=== PATIENT | female | born 2000 | race American Indian/Alaskan Native ===

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

== ENCOUNTER 2019-01-18 19:56 | Emergency (ER) | payer SELFPAY ==
[2019-01-18 20:09] VITALS: BP 126/87
--- NOTE | 2019-01-18 20:10 | Event Note ---
ED Screening Note ED Screening Note: pt states she has a bump to the left buttcheck that began yesterday states she had pus drainage today no fever no PMHx no allergies to meds LNMP: december 22 non smoker non drinker no drug use This initial assessment/diagnostic orders/clinical plan/treatment(s) is/are subject to change based on patients health status, clinical progression and re- assessment by fellow clinical providers in the ED. Further treatment and workup at subsequent clinical providers discretion. Patient/guardian urged not to elope from the ED as their condition may be serious if not clinically assessed and managed.
--- NOTE | 2019-01-18 23:39 | Emergency Department Report ---
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 Patient also c/o acute right plantar foot and heel pain that radiates to the right ankle for over 2 months. Patient denies fever, chills, nausea, vomiting, diarrhea, dizziness, traumatic injury, numbness and tingling of lower extremities bilaterally or dizziness and fall. MD Complaint: Painful left gluteus rash; right plantar foot pain -: Sudden, days(s) (2) Location: back (buttocks), lower extremity (right foot and ankle) Radiation: non-radiation Severity scale (0 -10): 8 Quality: aching, sharp, constant Consistency: constant Improves with: none Worsens with: movement Associated Symptoms: denies other symptoms. denies: confusion, chest pain, cough, diaphoresis, fever/chills, headaches, loss of appetite, malaise, nausea/vomiting, rash, shortness of breath, syncope Treatments Prior to Arrival: none - Related Data Previous Rx's Medication Instructions Recorded Last Taken Type Ibuprofen [Motrin] 600 mg PO Q8H PRN #20 tablet 01/18/19 Unknown Rx Sulfamethoxazole/Trimethoprim 1 each PO BID #20 tablet 01/18/19 Unknown Rx [Bactrim DS TAB] predniSONE [Deltasone] 40 mg PO QDAY #10 tab 01/18/19 Unknown Rx Allergies Allergy/AdvReac Type Severity Reaction Status Date / Time No Known Allergies Allergy Unverified 10/17/17 13:12 ED Review of Systems ROS: Stated complaint: R ANKLE PAIN/BUMP ON L THIGH Other details as noted in HPI Comment: All other systems reviewed and negative Constitutional: denies: chills, fever Eyes: denies: eye pain, eye discharge, vision change ENT: denies: ear pain, throat pain Respiratory: denies: cough, shortness of breath, wheezing Cardiovascular: denies: chest pain, palpitations Endocrine: no symptoms reported Gastrointestinal: denies: abdominal pain, nausea, diarrhea Genitourinary: denies: urgency, dysuria, discharge Musculoskeletal: arthralgia (right plantar foor and ankle). denies: back pain, joint swelling Skin: rash (maculopapular erythematous nonfluctuant rash on left gluteus), change in color (erythematous rash). denies: lesions Neurological: denies: headache, weakness, paresthesias Psychiatric: denies: anxiety, depression Hematological/Lymphatic: denies: easy bleeding, easy bruising ED Past Medical Hx - Past Medical History Previous Medical History?: No - Surgical History Past Surgical History?: No - Social History Smoking Status: Never Smoker Substance Use Type: None - Medications Home Medications: Home Medications Medication Instructions Recorded Confirmed Last Taken Type Ibuprofen [Motrin] 600 mg PO Q8H PRN #20 tablet 01/18/19 Unknown Rx Sulfamethoxazole/Trimethoprim 1 each PO BID #20 tablet 01/18/19 Unknown Rx [Bactrim DS TAB] predniSONE [Deltasone] 40 mg PO QDAY #10 tab 01/18/19 Unknown Rx ED Physical Exam - General Limitations: No Limitations General appearance: alert, in no apparent distress - Head Head exam: Present: atraumatic, normocephalic, normal inspection - Eye Eye exam: Present: normal appearance, PERRL, EOMI - ENT ENT exam: Present: normal exam, normal orophraynx, mucous membranes moist, TM's normal bilaterally, normal external ear exam - Neck Neck exam: Present: normal inspection, full ROM. Absent: tenderness - Respiratory Respiratory exam: Present: normal lung sounds bilaterally. Absent: respiratory distress, wheezes, rhonchi, stridor, chest wall tenderness, decreased breath sounds, prolonged expiratory - Cardiovascular Cardiovascular Exam: Present: regular rate, normal rhythm. Absent: systolic murmur, diastolic murmur, rubs, gallop - GI/Abdominal GI/Abdominal exam: Present: soft, normal bowel sounds. Absent: tenderness, hyperactive bowel sounds, hypoactive bowel sounds, organomegaly - Rectal Rectal exam: Present: deferred - Extremities Exam Extremities exam: Present: normal inspection, full ROM, tenderness (Palpable tenderness of plantar right foot and ankle), normal capillary refill. Absent: pedal edema, joint swelling - Back Exam Back exam: Present: normal inspection, full ROM. Absent: tenderness, CVA tenderness (L), muscle spasm - Neurological Exam Neurological exam: Present: alert, oriented X3, CN II-XII intact, normal gait, reflexes normal - Psychiatric Psychiatric exam: Present: normal affect, normal mood - Skin Skin exam: Present: warm, dry, intact, normal color, rash (erythematous swollen tender mildly erythematous nonfluctuant maculopapular rash on left gluteus) ED Course Vital Signs 01/18/19 01/18/19 20:03 20:09 Temperature 97.6 F 97.6 F Pulse Rate 109 H 108 H Respiratory 18 16 Rate Blood Pressure 126/87 Blood Pressure 126/87 [Left] O2 Sat by Pulse 100 100 Oximetry - Reevaluation(s) Reevaluation #1: 01/18/19 23:42 Patient is alert and oriented 3 and is not in any distress, anxious and tachycardic. Physical exam reveals nonfluctuant erythematous maculopapular rash on the left gluteus. The patient was discharged home on antibiotics and pain medications and advised to follow-up with her primary care physician in 7-10 days for reevaluation. Patient advised to return to the ED immediately if symptoms get worse. ED Medical Decision Making - Medical Decision Making Patient is alert and oriented 3 and is not in any distress, anxious and tachycardic. Physical exam reveals nonfluctuant erythematous maculopapular rash on the left gluteus. The patient was discharged home on antibiotics and pain medications and advised to follow-up with her primary care physician in 7-10 days for reevaluation. The tachycardia resolved to 100 bpm prior to discharge. Patient advised to return to the ED immediately if symptoms get worse. 01/18/19 23:43 - Differential Diagnosis cellulitis of buttocks; plantar fasciitis of right foot Critical care attestation.: If time is entered above; I have spent that time in minutes in the direct care of this critically ill patient, excluding procedure time. ED Disposition Clinical Impression: Plantar fasciitis of right foot, Cellulitis and abscess of buttock Muscle strain of right ankle Qualifiers: Encounter type: initial encounter Qualified Code(s): S96.911A - Strain of unspecified muscle and tendon at ankle and foot level, right foot, initial encounter Disposition: - TO HOME OR SELFCARE Is pt being admited?: No Does the pt Need Aspirin: No Condition: Stable Instructions: Muscle Strain (ED), Cellulitis (ED), Plantar Fasciitis (ED) Additional Instructions: Take medication with food, drink plenty of fluids and follow-up with your primary care physician in 7-10 days for reevaluation. Return to the ED immediately if symptoms get worse. Prescriptions: Sulfamethoxazole/Trimethoprim [Bactrim DS TAB] 1 each PO BID #20 tablet predniSONE [Deltasone] 40 mg PO QDAY #10 tab Ibuprofen [Motrin] 600 mg PO Q8H PRN #20 tablet PRN Reason: Pain Referrals: ZAKIA VANEGAS MD [Primary Care Provider] - 3-5 Days Time of Disposition: 23:45 Print Language: INDONESIAN
== END 2019-01-19 00:06 | disposition home or self-care (01) ==
LOC: ED 19:56
DX: S96.911A Strain of unspecified muscle and tendon at ankle and foot level, right foot, initial encounter (principal); M72.2 Plantar fascial fibromatosis; L02.31 Cutaneous abscess of buttock; W18.39XA Other fall on same level, initial encounter; Y93.89 Activity, other specified; Y92.89 Other specified places as the place of occurrence of the external cause; Y99.8 Other external cause status
CPT/HCPCS: 99282

== ENCOUNTER 2019-09-16 12:27 | Emergency (ER) | payer SELFPAY ==
[2019-09-16 12:43] VITALS: BP 116/81
--- NOTE | 2019-09-16 14:18 | Emergency Department Report ---
ED General Adult HPI - General Chief complaint: Back Pain/Injury Stated complaint: LT ARM PAIN,BACK PAIN Source: patient Mode of arrival: Ambulatory Limitations: No Limitations - History of Present Illness Initial comments: Repetitive lifting at work. Didn't think could work today. No other injury or complaint except should slightly sore too. no back pain. -: Gradual, hour(s) Quality: aching Consistency: intermittent Improves with: none Worsens with: none Associated Symptoms: denies other symptoms - Related Data Previous Rx's Medication Instructions Recorded Last Taken Type Ibuprofen [Motrin] 600 mg PO Q8H PRN #20 tablet 01/18/19 Unknown Rx Sulfamethoxazole/Trimethoprim 1 each PO BID #20 tablet 01/18/19 Unknown Rx [Bactrim DS TAB] predniSONE [Deltasone] 40 mg PO QDAY #10 tab 01/18/19 Unknown Rx Allergies Allergy/AdvReac Type Severity Reaction Status Date / Time No Known Allergies Allergy Unverified 10/17/17 13:12 ED Review of Systems ROS: Stated complaint: LT ARM PAIN,BACK PAIN Other details as noted in HPI Comment: All other systems reviewed and negative ED Past Medical Hx - Past Medical History Previous Medical History?: No - Surgical History Past Surgical History?: No - Social History Smoking Status: Never Smoker Substance Use Type: None - Medications Home Medications: Home Medications Medication Instructions Recorded Confirmed Last Taken Type Ibuprofen [Motrin] 600 mg PO Q8H PRN #20 tablet 01/18/19 Unknown Rx Sulfamethoxazole/Trimethoprim 1 each PO BID #20 tablet 01/18/19 Unknown Rx [Bactrim DS TAB] predniSONE [Deltasone] 40 mg PO QDAY #10 tab 01/18/19 Unknown Rx ED Physical Exam - General Limitations: No Limitations General appearance: alert, in no apparent distress - Head Head exam: Present: atraumatic - ENT ENT exam: Present: mucous membranes dry - Neck Neck exam: Present: normal inspection. Absent: tenderness, meningismus - Extremities Exam Extremities exam: Present: normal inspection, normal capillary refill. Absent: full ROM, tenderness - Neurological Exam Neurological exam: Present: CN II-XII intact. Absent: motor sensory deficit - Psychiatric Psychiatric exam: Present: normal affect, normal mood - Skin Skin exam: Present: warm, dry, intact, normal color. Absent: rash ED Course Vital Signs 09/16/19 12:42 Temperature 97.9 F Pulse Rate 108 H Respiratory 16 Rate Blood Pressure 116/81 O2 Sat by Pulse 97 Oximetry Critical care attestation.: If time is entered above; I have spent that time in minutes in the direct care of this critically ill patient, excluding procedure time. ED Disposition Clinical Impression: Sprain of wrist, left Qualifiers: Encounter type: initial encounter Qualified Code(s): S63.502A - Unspecified sprain of left wrist, initial encounter Disposition: TO HOME OR SELFCARE Is pt being admited?: No Does the pt Need Aspirin: No Condition: Stable Instructions: Wrist Sprain (ED) Additional Instructions: Orthopedist or W/C PRN. Advil OTC. Forms: Work/School Excuse Out Patient, Work/School Release Form(ED) Time of Disposition: 14:18
== END 2019-09-16 14:15 | disposition home or self-care (01) ==
LOC: ED 12:27
DX: S63.502A Unspecified sprain of left wrist, initial encounter (principal); X58.XXXA Exposure to other specified factors, initial encounter; Y93.89 Activity, other specified; Y92.89 Other specified places as the place of occurrence of the external cause; Y99.8 Other external cause status
CPT/HCPCS: 99282

== ENCOUNTER 2019-10-02 19:19 | Emergency (ER) | payer SELFPAY ==
[2019-10-02 20:00] VITALS: BP 117/80
--- NOTE | 2019-10-02 20:22 | Emergency Department Report ---
{null, ED Upper Extremity Inj HPI - General Chief Complaint: Extremity Problem,Nontraumatic Stated Complaint: RT HAND PAIN Time Seen by Provider: 10/02/19 20:16 Source: patient Mode of arrival: Ambulatory Limitations: No Limitations - History of Present Illness Initial Comments: This is a 19-year-old female nontoxic, well nourished in appearance, no acute signs of distress presents to the ED with c/o of chronic intermittent bilateral wrist pain and finger numbness. Patient denies any new trauma or injuries. Denies decreased ROM, joint swelling, redness, or abnormal gait. Denies any fever, chills, nausea, vomiting, headache, stiff neck, chest pain or shortness of breath. Patient denies any numbness or tingling. Denies any allergies. MD Complaint: Injury to:: wrist, finger -: month(s) (2) Severity scale (0 -10): 3 Improves With: immobilization Worsens With: movement of extremity Associated Symptoms: denies other symptoms. denies: weakness, numbness, neck pain, suspects foreign body, nausea/vomiting, heard/felt popping sensat - Related Data Previous Rx's Medication Instructions Recorded Last Taken Type Ibuprofen [Motrin] 600 mg PO Q8H PRN #20 tablet 01/18/19 Unknown Rx Sulfamethoxazole/Trimethoprim 1 each PO BID #20 tablet 01/18/19 Unknown Rx [Bactrim DS TAB] predniSONE [Deltasone] 40 mg PO QDAY #10 tab 01/18/19 Unknown Rx Allergies Allergy/AdvReac Type Severity Reaction Status Date / Time No Known Allergies Allergy Verified 09/17/19 03:53 ED Review of Systems ROS: Stated complaint: RT HAND PAIN Other details as noted in HPI Constitutional: denies: chills, fever Eyes: denies: eye pain, eye discharge, vision change ENT: denies: ear pain, throat pain Respiratory: denies: cough, shortness of breath, wheezing Cardiovascular: denies: chest pain, palpitations Endocrine: no symptoms reported Gastrointestinal: denies: abdominal pain, nausea, diarrhea Genitourinary: denies: urgency, dysuria, discharge Musculoskeletal: denies: back pain, joint swelling, arthralgia Skin: denies: rash, lesions Neurological: denies: headache, weakness, paresthesias Psychiatric: denies: anxiety, depression Hematological/Lymphatic: denies: easy bleeding, easy bruising ED Past Medical Hx - Past Medical History Previous Medical History?: No - Surgical History Past Surgical History?: No - Social History Smoking Status: Never Smoker Substance Use Type: None - Medications Home Medications: Home Medications Medication Instructions Recorded Confirmed Last Taken Type Ibuprofen [Motrin] 600 mg PO Q8H PRN #20 tablet 01/18/19 Unknown Rx Sulfamethoxazole/Trimethoprim 1 each PO BID #20 tablet 01/18/19 Unknown Rx [Bactrim DS TAB] predniSONE [Deltasone] 40 mg PO QDAY #10 tab 01/18/19 Unknown Rx ED Physical Exam - General Limitations: No Limitations General appearance: alert, in no apparent distress - Head Head exam: Present: atraumatic, normocephalic - Extremities Exam Extremities exam: Present: normal inspection, full ROM, normal capillary refill, other (positive phalns test). Absent: tenderness, joint swelling, calf tenderness ED Course Vital Signs 10/02/19 19:54 Temperature 98.3 F Pulse Rate 100 H Respiratory 18 Rate Blood Pressure 117/80 O2 Sat by Pulse 97 Oximetry - Reevaluation(s) Reevaluation #1: 10/02/19 20:20 Patient is speaking in full sentence swith no signs of distress ntoed. ED Medical Decision Making - Medical Decision Making This is a 19-year-old female that presents with chronic carpal tunnel syndrome. Patient is stable and was examined by me. Exam does not show any acute conditions. No joint effusion, no redness, no decreased ROM. Normal gait. Patient was instructed to Follow-up with a orthopedic doctor in 3-5 days or if symptoms worsen and continue return to emergency room as soon as possible. At time of discharge, the patient does not seem toxic or ill in appearance. No acute signs of distress noted. Patient agrees to discharge treatment plan of care. No further questions noted by the patient. Critical care attestation.: If time is entered above; I have spent that time in minutes in the direct care of this critically ill patient, excluding procedure time. ED Disposition Clinical Impression: Carpal tunnel syndrome Qualifiers: Laterality: bilateral Qualified Code(s): G56.03 - Carpal tunnel syndrome, bilateral upper limbs Disposition: MED SCREENING EXAM-LEFT Is pt being admited?: No Does the pt Need Aspirin: No Condition: Stable Instructions: Carpal Tunnel Syndrome (ED) Additional Instructions: Follow-up with a orthopedic doctor in 3-5 days or if symptoms worsen and continue return to emergency room as soon as possible. Referrals: PRIMARY CARE, [Referring] - 3-5 Days GARRET BYRD MD [Staff Physician] - 3-5 Days [facility] [Outside] - 3-5 Days ROSINA MOORE MD [Staff Physician] - 3-5 Days }
== END 2019-10-02 21:00 | disposition left against medical advice (07) ==
LOC: ED 19:19
DX: G56.03 Carpal tunnel syndrome, bilateral upper limbs (principal); Z79.899 Other long term (current) drug therapy
CPT/HCPCS: 99281

== ENCOUNTER 2019-10-15 21:23 | Emergency (ER) | payer SELFPAY ==
--- NOTE | 2019-10-15 21:58 | Emergency Department Report ---
Blank Doc - Documentation Documentation: 19-year-old female that presents with pelvic pain and vaginal bleeding. Unsure if . Denies any n/v. This initial assessment/diagnostic orders/clinical plan/treatment(s) is/are subject to change based on patient's health status, clinical progression and re- assessment by fellow clinical providers in the ED. Further treatment and workup at subsequent clinical providers discretion. Patient/guardians urged not to elope from the ED as their condition may be serious if not clinically assessed and managed. Initial orders include: 1- Patient sent to [facility] for further evaluation and treatment 2- UA
[2019-10-15 23:35] LABS: Basophils % (Auto) 0.2 % (0.0-1.8); Eosinophils % (Auto) 0.4 % (0.0-4.3); Hematocrit 39.7 % (30.3-42.9); Hemoglobin 13.1 gm/dl (10.1-14.3); Lymphocytes # (Auto) 3.5 K/mm3 (1.2-5.4); Lymphocytes % (Auto) 36.7 % (13.4-35.0); Mean Corpuscular HGB Conc 33 % (30-34); Mean Corpuscular Volume 87 fl (79-97); Monocytes # (Auto) 0.6 K/mm3 (0.0-0.8); Monocytes % (Auto) 6.2 % (0.0-7.3); Platelet Count 312 K/mm3 (140-440); Red Blood Count 4.59 M/mm3 (3.65-5.03)
[2019-10-15 23:59] LABS: Alanine Aminotransferase 10 units/L (7-56); Albumin 4.3 g/dL (3.9-5); BUN/Creatinine Ratio 33; Blood Urea Nitrogen 10 mg/dL (7-17); Calcium 9.6 mg/dL (8.4-10.2); Hemolysis Index 9
[2019-10-16] MEDS ORDERED: INSULIN REGULAR, HUMAN 100 UNITS/1 ML SUB-Q ONE (00:19)
[2019-10-16 01:08] LABS: Bacteria,Urine 1+ /HPF (Negative); Bilirubin,Urine NEG (Negative); Blood,Urine MOD (Negative); Color,Urine Straw (Yellow); Protein,Urine <15 mg/dL mg/dL (Negative); Urobilinogen,Urine < 2.0 mg/dL (<2.0)
--- NOTE | 2019-10-16 01:53 | Ultrasound Report ---
4B ultrasound FINDINGS: The uterus measures 6.1 x 4.5 x 3.5 cm and is empty. Endometrial stripe is normal at 4.7 mm . Right ovary measures 3 x 1.5 x 1.2 cm and appears normal with the left ovary measuring 1.9 x 1.1 x 1 cm. Both ovaries appear normal with no masses, cysts or evidence of ectopic . There is no free fluid seen. No abnormality demonstrated. IMPRESSION: Negative pelvic ultrasound. There is no IUP or ectopic seen. Signer Name: Denny Prieto MD Signed: 10/16/2019 1:49 AM Workstation Name: [id number]
[2019-10-16 01:56] VITALS: BP 120/89
--- NOTE | 2019-10-16 02:07 | Emergency Department Report ---
HPI - General Chief Complaint: Abdominal Pain Time Seen by Provider: 10/15/19 21:57 - HPI HPI: 19-year-old -[place] female presents to the emergency department with a complaint of some abdominal cramping, mild vaginal bleeding, and concern for . Patient says that she has been having an irregular menstrual cycle. She thinks that her last menstrual cycle was in early September but "I guess it could have been a continuation of my cycle in August." If , the patient would be G1, P0. Patient says that she has a a recent history of elevated blood sugar levels. She has not yet been diagnosed with diabetes but says she is "going to see my doctor tomorrow about this." ED Past Medical Hx - Past Medical History Previous Medical History?: No - Surgical History Past Surgical History?: No - Social History Smoking Status: Never Smoker Substance Use Type: None - Medications Home Medications: Home Medications Medication Instructions Recorded Confirmed Last Taken Type Ibuprofen [Motrin] 600 mg PO Q8H PRN #20 tablet 01/18/19 Unknown Rx Sulfamethoxazole/Trimethoprim 1 each PO BID #20 tablet 01/18/19 Unknown Rx [Bactrim DS TAB] predniSONE [Deltasone] 40 mg PO QDAY #10 tab 01/18/19 Unknown Rx Vit-Fe Fumar-FA [ 1 tab PO QDAY #30 tablet 10/16/19 Unknown Rx Vitamin] ED Review of Systems ROS: Stated complaint: STOMACH PAIN IRREGULAR CYCLE Other details as noted in HPI Comment: All other systems reviewed and negative Constitutional: denies: chills, fever Eyes: denies: eye pain, vision change ENT: denies: ear pain, throat pain Respiratory: denies: cough, shortness of breath Cardiovascular: denies: chest pain, palpitations Gastrointestinal: abdominal pain. denies: nausea, vomiting Genitourinary: abnormal menses. denies: dysuria, discharge Musculoskeletal: denies: back pain, arthralgia Neurological: denies: headache, weakness Physical Exam - Physical Exam Vital Signs: Vital Signs 10/15/19 10/15/19 10/16/19 21:28 23:58 01:55 Temperature 98.6 F 97.9 F Pulse Rate 104 H 100 H 98 H Respiratory 18 18 18 Rate Blood Pressure 129/82 Blood Pressure 128/93 120/89 [Left] O2 Sat by Pulse 100 100 100 Oximetry Physical Exam: GENERAL: The patient is well-developed well-nourished. HENT: Normocephalic. Atraumatic. Patient has moist mucous membranes. EYES: Extraocular motions are intact. NECK: Supple. Trachea is midline. CHEST/LUNGS: Clear to auscultation. There is no respiratory distress noted. HEART/CARDIOVASCULAR: Regular. There is no tachycardia. ABDOMEN: Abdomen is soft, nontender. Patient has normal bowel sounds. SKIN: Skin is warm and dry. NEURO: The patient is awake, alert, and oriented. The patient is cooperative. The patient has no focal neurologic deficits. Normal speech. MUSCULOSKELETAL: There is no tenderness or deformity. There is no evidence of acute injury. ED Course Vital Signs 10/15/19 10/15/19 10/16/19 21:28 23:58 01:55 Temperature 98.6 F 97.9 F Pulse Rate 104 H 100 H 98 H Respiratory 18 18 18 Rate Blood Pressure 129/82 Blood Pressure 128/93 120/89 [Left] O2 Sat by Pulse 100 100 100 Oximetry ED Medical Decision Making - Lab Data Result diagrams: 10/15/19 23:00 10/15/19 23:00 - Radiology Data Radiology results: report reviewed 4B ultrasound FINDINGS: The uterus measures 6.1 x 4.5 x 3.5 cm and is empty. Endometrial stripe is normal at 4.7 mm. Right ovary measures 3 x 1.5 x 1.2 cm and appears normal with the left ovary measuring 1.9 x 1.1 x 1 cm. Both ovaries appear normal with no masses, cysts or evidence of ectopic . There is no free fluid seen. No abnormality demonstrated. IMPRESSION: Negative pelvic ultrasound. There is no IUP or ectopic seen. - Medical Decision Making This patient presents with abnormal menstrual cycle and vaginal bleeding. She also presents with some mild abdominal pain. Patient's qualitative test came back positive. She then had a quantitative test that came back with a beta of 350. An ultrasound shows no sign of any intrauterine or ectopic at this time. Patient's labs are otherwise unremarkable except for a blood sugar level of 370. The patient says she is currently following up with a doctor, and has an appointment tomorrow, regarding this recent hyperglycemia and possible diabetes. She was given a dose of subcutaneous insulin and her blood sugar came down to about 200. No signs of diabetic ketoacidosis. Vital signs stable throughout her ED course. Hemoglobin was 13. The patient did not want to stay any further to have the type and sc reen or RhoGam checked here. She already will need to follow-up with an [facility] in the next few days. She will need a repeat hormone level done and if the number is increasing this could be an early . If the beta hCG is decreasing this is most likely a miscarriage. She will return to the ER with any worsening of her symptoms or any acute distress. - Differential Diagnosis , threatened miscarriage, spontaneous miscarriage, DKA, HHNK Critical Care Time: No Critical care attestation.: If time is entered above; I have spent that time in minutes in the direct care of this critically ill patient, excluding procedure time. ED Disposition Clinical Impression: Threatened miscarriage, Hyperglycemia Disposition: DC-01 TO HOME OR SELFCARE Is pt being admited?: No Condition: Stable Instructions: Threatened Miscarriage (ED), Abdominal Pain (ED), Hyperglycemia, Non-Diabetic (ED) Additional Instructions: Your beta hCG/ hormone today was 350. Please follow-up with an [facility] in about 4 to 5 days. You will need a repeat hormone level at that time. If it is increasing then this may be a early . If the number is decreasing, this may have been a miscarriage. Please return to the emergency department with any worsening of your symptoms including any increased vaginal bleeding, or with any acute distress. Your blood sugar was about 370 today. It came down with the insulin given. Please keep your appointment tomorrow, as previously scheduled, to follow-up regarding your recent elevated blood sugar levels. Try and stay away from foods that are high in sugar, carbohydrates and starches. Keep a blood sugar log. Prescriptions: Vit-Fe Fumar-FA [ Vitamin] 1 tab PO QDAY #30 tablet Referrals: [facility] [Provider Group] - 3-5 Days [facility] [Provider Group] - 3-5 Days [facility] [Provider Group] - 3-5 Days Time of Disposition: 02:18
== END 2019-10-16 02:26 | disposition home or self-care (01) ==
LOC: ED 21:23
DX: O20.0 Threatened abortion (principal); O26.891 Other specified pregnancy related conditions, first trimester; R73.9 Hyperglycemia, unspecified; Z79.899 Other long term (current) drug therapy; Z3A.01 Less than 8 weeks gestation of pregnancy
CPT/HCPCS: 36415; 76801; 76817; 80053; 81001; 82962; 84702; 84703; 85025; 96372; J1815

== ENCOUNTER 2019-12-12 19:22 | Emergency (ER) | payer SELFPAY ==
--- NOTE | 2019-12-12 20:13 | Emergency Department Report ---
ED Female HPI - General Chief complaint: Urogenital-Female Stated complaint: BUMP ON VAGINA Time Seen by Provider: 12/12/19 20:06 Source: patient Mode of arrival: Ambulatory Limitations: No Limitations - History of Present Illness Initial comments: Ms. Membreno is a 89 y/o female who presents for ? abscess to labia x 3 days. Pt complains of pain 5/10 , swelling left labia. She denies fever, no n/v , abd pain, no vaginal discharge, No concern for STI. This is a recurring problem for this patient Location: labia Radiation: non-radiating Severity: moderate Severity scale (0 -10): 5 Quality: sharp Consistency: constant Improves with: none Worsens with: movement, other (palpation) Are you Now?: No Last Menstrual Period: 11/09/19 EDC: 08/15/20 - Related Data Sexually active: Yes Previous Rx's Medication Instructions Recorded Last Taken Type Ibuprofen [Motrin] 600 mg PO Q8H PRN #20 tablet 01/18/19 Unknown Rx Sulfamethoxazole/Trimethoprim 1 each PO BID #20 tablet 01/18/19 Unknown Rx [Bactrim DS TAB] predniSONE [Deltasone] 40 mg PO QDAY #10 tab 01/18/19 Unknown Rx Vit-Fe Fumar-FA [ 1 tab PO QDAY #30 tablet 10/16/19 Unknown Rx Vitamin] cephALEXin [Keflex] 500 mg PO Q8HR 7 Days #21 cap 12/12/19 Unknown Rx traMADoL [Ultram] 50 mg PO Q6HR PRN #12 tablet 12/12/19 Unknown Rx Allergies Allergy/AdvReac Type Severity Reaction Status Date / Time No Known Allergies Allergy Verified 09/17/19 03:53 ED Review of Systems ROS: Stated complaint: BUMP ON VAGINA Other details as noted in HPI Constitutional: denies: chills, fever Eyes: denies: eye pain, eye discharge, vision change ENT: denies: ear pain, throat pain Respiratory: denies: cough, shortness of breath, wheezing Cardiovascular: denies: chest pain, palpitations Endocrine: no symptoms reported Gastrointestinal: denies: abdominal pain, nausea, diarrhea Genitourinary: other (left labia abcess/cyst ) Musculoskeletal: denies: back pain, joint swelling, arthralgia Skin: denies: rash, lesions Neurological: denies: headache, weakness, paresthesias Psychiatric: denies: anxiety, depression Hematological/Lymphatic: denies: easy bleeding, easy bruising ED Past Medical Hx - Past Medical History Previous Medical History?: No - Social History Smoking Status: Current Every Day Smoker Substance Use Type: None - Medications Home Medications: Home Medications Medication Instructions Recorded Confirmed Last Taken Type Ibuprofen [Motrin] 600 mg PO Q8H PRN #20 tablet 01/18/19 Unknown Rx Sulfamethoxazole/Trimethoprim 1 each PO BID #20 tablet 01/18/19 Unknown Rx [Bactrim DS TAB] predniSONE [Deltasone] 40 mg PO QDAY #10 tab 01/18/19 Unknown Rx Vit-Fe Fumar-FA [ 1 tab PO QDAY #30 tablet 10/16/19 Unknown Rx Vitamin] cephALEXin [Keflex] 500 mg PO Q8HR 7 Days #21 cap 12/12/19 Unknown Rx traMADoL [Ultram] 50 mg PO Q6HR PRN #12 tablet 12/12/19 Unknown Rx ED Physical Exam - General Limitations: No Limitations General appearance: alert, in no apparent distress - Head Head exam: Present: atraumatic, normocephalic - Eye Eye exam: Present: normal appearance - ENT ENT exam: Present: normal exam - Neck Neck exam: Present: normal inspection - Respiratory Respiratory exam: Present: normal lung sounds bilaterally. Absent: respiratory distress, wheezes, stridor - Cardiovascular Cardiovascular Exam: Present: regular rate, normal rhythm, normal heart sounds. Absent: systolic murmur, diastolic murmur, rubs, gallop - GI/Abdominal GI/Abdominal exam: Present: soft, normal bowel sounds. Absent: distended, tenderness, guarding, rebound, rigid, bruit, hernia - Rectal Rectal exam: Present: deferred - External exam: Present: erythema (left labia ), swelling, other (left bartholyn cyst / abscess fluctuant erythema no drainage painful to touch). Absent: lesions, lacerations, ecchymosis, bleeding - Extremities Exam Extremities exam: Present: normal inspection, full ROM. Absent: tenderness - Back Exam Back exam: Present: normal inspection, full ROM. Absent: tenderness, CVA tenderness (R), CVA tenderness (L) - Neurological Exam Neurological exam: Present: alert, oriented X3, CN II-XII intact, normal gait - Psychiatric Psychiatric exam: Present: normal affect, normal mood - Skin Skin exam: Present: warm, dry, intact, normal color. Absent: rash ED Course Vital Signs 12/12/19 19:26 Pulse Rate 121 H Respiratory 18 Rate Blood Pressure 126/89 [Right] O2 Sat by Pulse 100 Oximetry - I & D Left Vagina Type of Procedure: Simple Site: left labia Blade Size: 11 I & D Procedure: betadine prep Progress: Is a left labial Bartholin abscess approximately 3 cm x 1 there is erythema fluctuant , pain at that site cleaned with Betadine solution. Anesthesia with lidocaine 1% 2 cc, incision with 11 blade scalpel wound probed with $0.06 blunt forceps , there is moderate purulent output, wound irrigated with 30 cc sterile saline all bleeding is controlled sterile dressing applied, patient given wound care instructions verbalized understanding of same , Critical care attestation.: If time is entered above; I have spent that time in minutes in the direct care of this critically ill patient, excluding procedure time. ED Disposition Clinical Impression: Bartholin's gland abscess Disposition: - TO HOME OR SELFCARE Is pt being admited?: No Does the pt Need Aspirin: No Condition: Stable Instructions: Bartholin Cyst (ED), Cellulitis (ED) Prescriptions: cephALEXin [Keflex] 500 mg PO Q8HR 7 Days #21 cap traMADoL [Ultram] 50 mg PO Q6HR PRN #12 tablet PRN Reason: Pain Referrals: HUSSAIN AKERS MD [Staff Physician] - 3-5 Days Forms: Work/School Release Form(ED) Time of Disposition: 21:49
[2019-12-12] MEDS: LIDOCAINE-MPF (1%) 10 MG/1 ML VIAL 5 ML INFILTRATI ONE (21:45)
[2019-12-12] MEDS: HYDROcodone/ACETAMINOPHEN 5-325 MG TAB PO ONE (22:27)
[2019-12-12] MEDS: cephALEXin 500 MG CAP PO ONE (22:27)
[2019-12-12 22:28] VITALS: BP 130/90
== END 2019-12-12 22:28 | disposition home or self-care (01) ==
LOC: ED 19:22
DX: N75.1 Abscess of Bartholin's gland (principal); F17.200 Nicotine dependence, unspecified, uncomplicated; Z79.899 Other long term (current) drug therapy
CPT/HCPCS: 99282

== ENCOUNTER 2020-02-19 19:50 | Emergency (ER) | payer SELFPAY ==
[2020-02-19 21:10] VITALS: BP 116/75
--- NOTE | 2020-02-19 21:10 | Event Note ---
ED Screening Note Date of service: 02/19/20 Time: 21:08 ED Screening Note: 19-year-old female who presents the ED with inner thigh/groin swelling and pain. Patient states that she had I&D some days ago states she swelling area which is getting bigger This initial assessment/diagnostic orders/clinical plan/treatment(s) is/are subject to change based on patients health status, clinical progression and re- assessment by fellow clinical providers in the ED. Further treatment and workup at subsequent clinical providers discretion. Patient/guardian urged not to elope from the ED as their condition may be serious if not clinically assessed and managed. Initial orders include: I&D
[2020-02-20] MEDS ORDERED: KETOROLAC 30 MG/1 ML INJ IV ONE (00:01)
[2020-02-20] MEDS ORDERED: HYDROcodone/ACETAMINOPHEN 7.5-325MG TAB PO ONE (00:03)
[2020-02-20 00:23] LABS: Basophils % (Auto) 0.3 % (0.0-1.8); Eosinophils # (Auto) 0.1 K/mm3 (0.0-0.4); Eosinophils % (Auto) 0.8 % (0.0-4.3); Hemoglobin 13.8 gm/dl (10.1-14.3); Lymphocytes # (Auto) 3.1 K/mm3 (1.2-5.4); Lymphocytes % (Auto) 22.5 % (13.4-35.0); Mean Corpuscular HGB Conc 35 % (30-34); Mean Corpuscular Volume 87 fl (79-97); Monocytes # (Auto) 0.8 K/mm3 (0.0-0.8); Monocytes % (Auto) 5.5 % (0.0-7.3); Platelet Count 359 K/mm3 (140-440); Red Blood Count 4.62 M/mm3 (3.65-5.03); Red Cell Distribution Width 13.4 % (13.2-15.2)
[2020-02-20] MEDS: ONDANSETRON 4 MG ODT TAB PO ONE ×2 (00:28→05:12)
[2020-02-20 00:46] LABS: Alanine Aminotransferase 9 units/L (7-56); BUN/Creatinine Ratio 23; Blood Urea Nitrogen 7 mg/dL (7-17); Calcium 9.5 mg/dL (8.4-10.2); Hemolysis Index 3
[2020-02-20] MEDS ORDERED: SODIUM CHLORIDE 0.9% 1000 ML 1,000 ML IV ONE ×2 (01:13)
[2020-02-20] MEDS ORDERED: oxyCODONE /ACETAMINOPHEN 5-325MG TAB PO ONE (05:07)
[2020-02-20] MEDS ORDERED: ONDANSETRON 4 MG ODT TAB PO ONE (05:08)
[2020-02-20] MEDS ORDERED: ACETAMINOPHEN 325 MG TAB PO ONE (05:08)
[2020-02-20] MEDS ORDERED: ONDANSETRON 4 MG ODT TAB ONE (05:10)
[2020-02-20] MEDS ORDERED: ACETAMINOPHEN 325 MG TAB ONE (05:10)
[2020-02-20] MEDS ORDERED: oxyCODONE /ACETAMINOPHEN 5-325MG TAB ONE (05:11)
--- NOTE | 2020-02-20 05:13 | Emergency Department Report ---
ED General Adult HPI - General Chief complaint: Skin/Abscess/Foreign Body Stated complaint: PAINFUL BUMP ON VAGINA Source: patient Mode of arrival: Ambulatory Limitations: No Limitations - History of Present Illness Initial comments: Patient is a 19-year-old -[place] female with a history of insulin- dependent diabetes who presents to the ED with complaint of acute onset persistent severe painful swollen erythematous maculopapular rash on left gluteus for the last 1 week. Patient states that she has been treated for the same in this ED daily for the last 3 days and states that the rash and the pain have worsened. Patient states that she is currently taking Keflex and Bactrim DS as previously prescribed. Patient denies dizziness, syncope, fever, chills, cough, nausea, vomiting, diarrhea, abdominal pain, headache, chest pain, shortness of breath, numbness and tingling or weakness of lower extremities bilaterally. MD Complaint: left gluteal abscess and pain -: Sudden, week(s) (1) Location: buttocks (left gluteas) Radiation: non-radiation Severity scale (0 -10): 8 Quality: aching, sharp Consistency: constant Improves with: none Worsens with: movement Associated Symptoms: denies other symptoms, rash (Swollen, severely painful left gluteal rash ). denies: confusion, chest pain, cough, diaphoresis, fever/ chills, headaches, malaise, nausea/vomiting, shortness of breath, syncope, weakness Treatments Prior to Arrival: none - Related Data Previous Rx's Medication Instructions Recorded Last Taken Type Ibuprofen [Motrin] 600 mg PO Q8H PRN #20 tablet 01/18/19 Unknown Rx Sulfamethoxazole/Trimethoprim 1 each PO BID #20 tablet 01/18/19 Unknown Rx [Bactrim DS TAB] predniSONE [Deltasone] 40 mg PO QDAY #10 tab 01/18/19 Unknown Rx Vit-Fe Fumar-FA [ 1 tab PO QDAY #30 tablet 10/16/19 Unknown Rx Vitamin] cephALEXin [Keflex] 500 mg PO Q8HR 7 Days #21 cap 12/12/19 Unknown Rx traMADoL [Ultram] 50 mg PO Q6HR PRN #12 tablet 12/12/19 Unknown Rx Acetaminophen [Tylenol] 650 mg PO Q8HR PRN #14 capsule 02/13/20 Unknown Rx Sulfamethoxazole/Trimethoprim 1 each PO BID 7 Days #14 tablet 02/13/20 Unknown Rx [Bactrim DS TAB] cephALEXin [Keflex] 500 mg PO Q12HR #20 cap 02/18/20 Unknown Rx Clindamycin [Clindamycin CAP] 300 mg PO Q8HR #60 capsule 02/20/20 Unknown Rx Ibuprofen [Motrin] 600 mg PO Q8H PRN #24 tablet 02/20/20 Unknown Rx Sulfamethoxazole/Trimethoprim 1 each PO Q12H #20 tablet 02/20/20 Unknown Rx [Bactrim DS TAB] Allergies Allergy/AdvReac Type Severity Reaction Status Date / Time No Known Allergies Allergy Verified 09/17/19 03:53 ED Review of Systems ROS: Stated complaint: PAINFUL BUMP ON VAGINA Other details as noted in HPI Constitutional: denies: chills, fever Eyes: denies: eye pain, eye discharge, vision change ENT: denies: ear pain, throat pain Respiratory: denies: cough, shortness of breath, wheezing Cardiovascular: denies: chest pain, palpitations Endocrine: no symptoms reported Gastrointestinal: denies: abdominal pain, nausea, diarrhea Genitourinary: denies: urgency, dysuria, discharge Musculoskeletal: other (Swelling, painful mild erythematous rash on left gluteus). denies: back pain, joint swelling, arthralgia Skin: rash (Swollen erythematous maculopapular rash on left gluteus). denies: lesions Neurological: denies: headache, weakness, paresthesias Psychiatric: denies: anxiety, depression Hematological/Lymphatic: denies: easy bleeding, easy bruising ED Past Medical Hx - Past Medical History Previous Medical History?: Yes Hx Diabetes: Yes - Surgical History Past Surgical History?: No - Social History Smoking Status: Never Smoker Substance Use Type: None - Medications Home Medications: Home Medications Medication Instructions Recorded Confirmed Last Taken Type Ibuprofen [Motrin] 600 mg PO Q8H PRN #20 tablet 01/18/19 Unknown Rx Sulfamethoxazole/Trimethoprim 1 each PO BID #20 tablet 01/18/19 Unknown Rx [Bactrim DS TAB] predniSONE [Deltasone] 40 mg PO QDAY #10 tab 01/18/19 Unknown Rx Vit-Fe Fumar-FA [ 1 tab PO QDAY #30 tablet 10/16/19 Unknown Rx Vitamin] cephALEXin [Keflex] 500 mg PO Q8HR 7 Days #21 cap 12/12/19 Unknown Rx traMADoL [Ultram] 50 mg PO Q6HR PRN #12 tablet 12/12/19 Unknown Rx Acetaminophen [Tylenol] 650 mg PO Q8HR PRN #14 capsule 02/13/20 Unknown Rx Sulfamethoxazole/Trimethoprim 1 each PO BID 7 Days #14 tablet 02/13/20 Unknown Rx [Bactrim DS TAB] cephALEXin [Keflex] 500 mg PO Q12HR #20 cap 02/18/20 Unknown Rx Clindamycin [Clindamycin CAP] 300 mg PO Q8HR #60 capsule 02/20/20 Unknown Rx Ibuprofen [Motrin] 600 mg PO Q8H PRN #24 tablet 02/20/20 Unknown Rx Sulfamethoxazole/Trimethoprim 1 each PO Q12H #20 tablet 02/20/20 Unknown Rx [Bactrim DS TAB] ED Physical Exam - General Limitations: No Limitations General appearance: alert, in no apparent distress - Head Head exam: Present: atraumatic, normocephalic, normal inspection - Eye Eye exam: Present: normal appearance, PERRL, EOMI Pupils: Present: normal accommodation - ENT ENT exam: Present: normal exam, normal orophraynx, mucous membranes moist, TM's normal bilaterally, normal external ear exam - Neck Neck exam: Present: normal inspection, full ROM - Respiratory Respiratory exam: Present: normal lung sounds bilaterally. Absent: respiratory distress, wheezes, rales, rhonchi, chest wall tenderness, accessory muscle use, decreased breath sounds, prolonged expiratory - Cardiovascular Cardiovascular Exam: Present: regular rate, normal rhythm, normal heart sounds. Absent: systolic murmur, diastolic murmur, rubs, gallop - GI/Abdominal GI/Abdominal exam: Present: soft, normal bowel sounds. Absent: tenderness, guarding (Yes), rebound, hyperactive bowel sounds, hypoactive bowel sounds, organomegaly - Extremities Exam Extremities exam: Present: normal inspection, full ROM, tenderness (Palpable severe tenderness of left gluteus due to erythematous maculopapular fluctuant rash), normal capillary refill - Back Exam Back exam: Present: normal inspection, full ROM. Absent: tenderness, CVA tenderness (R), muscle spasm, paraspinal tenderness, vertebral tenderness - Neurological Exam Neurological exam: Present: alert, oriented X3, CN II-XII intact, normal gait, reflexes normal - Psychiatric Psychiatric exam: Present: normal affect, normal mood - Skin Skin exam: Present: warm, dry, intact, normal color, rash (Swollen, erythematous maculopapular fluctuant rash on left gluteus) ED Course Vital Signs 02/19/20 19:56 Temperature 98.5 F Pulse Rate 124 H Respiratory 18 Rate Blood Pressure 116/75 O2 Sat by Pulse 98 Oximetry - I & D Left Buttocks Type of Procedure: Simple Site: Left gluteus Blade Size: 11 I & D Procedure: betadine prep, sterile drapes applied, sterile dressing applied, gauze wick placed Progress: Patient tolerated the procedure well. The wound was drained and debrided thoroughly and and iodoform gauze packing applied. The wound was then dressed appropriately and the patient was discharged home on medications. Patient was advised return to the ED immediately if symptoms get worse. Patient was otherwise advised to return to the ED in 2 days for wound recheck. ED Medical Decision Making - Lab Data Result diagrams: 02/20/20 00:06 02/20/20 00:06 - Medical Decision Making This is a 19-year-old -[place] female with a history of insulin- dependent diabetes who presents to the ED with complaint of acute onset persistent severe painful swollen erythematous maculopapular rash on left gluteus for the last 1 week. Patient states that she has been treated for the same in this ED daily for the last 3 days and states that the rash and the pain have worsened. Patient states that she is currently taking Keflex and Bactrim DS as previously prescribed. In the ED, patient is alert and oriented x3 and is not in distress but tachycardic in triage and appears to be in pain. Lab test results were reviewed and showed acute leukocytosis of 13,900, acute hyperglycemia of 322 mg/dL, mild hyponatremia of 134 millimoles per liter. Patient received 2 L of normal saline IV bolus x1. Patient also received pain medication and clindamycin 900 mg IV x1. On reevaluation, patient's pain is well controlled medications. Patient's repeat blood sugar was 271 mg/dL. The swelling left gluteal abscess was cleaned thoroughly and incised and drained per protocol. Patient tolerated the procedure well. The wound was then packed with iodoform gauze and dressed appropriately. Patient was discharged home on pain medications and additional antibiotic clindamycin. Patient was advised to return to the ED in 2 days for reevaluation and for wound recheck. Patient was also advised to return to the ED immediately if symptoms get worse, otherwise follow-up with her primary care physician in 7 to 10 days for reevaluation. - Differential Diagnosis cellulitis; abscess; folliculitis; insect bite Critical care attestation.: If time is entered above; I have spent that time in minutes in the direct care of this critically ill patient, excluding procedure time. ED Disposition Clinical Impression: Cellulitis and abscess of buttock, Hyperglycemia due to type 1 diabetes mellitus Disposition: TO HOME OR SELFCARE Is pt being admited?: No Does the pt Need Aspirin: No Condition: Stable Instructions: Cellulitis (ED), Abscess (ED) Additional Instructions: Take medication with food, drink plenty of fluids and follow-up with your primary care physician in 7 to 10 days for reevaluation. Return to the ED in 2 days for wound recheck and packing removal, or immediately to return to the ED if symptoms get worse. Prescriptions: Sulfamethoxazole/Trimethoprim [Bactrim DS TAB] 1 each PO Q12H #20 tablet Clindamycin [Clindamycin CAP] 300 mg PO Q8HR #60 capsule Ibuprofen [Motrin] 600 mg PO Q8H PRN #24 tablet PRN Reason: Pain Referrals: [facility] [Provider Group] - 3-5 Days Time of Disposition: 05:17 Print Language: LEBANESE
== END 2020-02-20 05:20 | disposition home or self-care (01) ==
LOC: ED 19:50
DX: L02.31 Cutaneous abscess of buttock (principal); E10.65 Type 1 diabetes mellitus with hyperglycemia
CPT/HCPCS: 10060; 36415; 80053; 82962; 84703; 85025; 96365; 96375; 99283; J1885; J7030; Q0162

== ENCOUNTER 2020-04-23 20:10 | Emergency (ER) | payer SELFPAY ==
[2020-04-23 20:40] VITALS: BP 127/74
[2020-04-23 21:29] LABS: Basophils # (Auto) 0.1 K/mm3 (0.0-0.1); Basophils % (Auto) 0.7 % (0.0-1.8); Eosinophils % (Auto) 0.4 % (0.0-4.3); Hematocrit 38.1 % (30.3-42.9); Hemoglobin 12.4 gm/dl (10.1-14.3); Lymphocytes % (Auto) 29.3 % (13.4-35.0); Mean Corpuscular HGB Conc 33 % (30-34); Mean Corpuscular Volume 88 fl (79-97); Monocytes # (Auto) 0.6 K/mm3 (0.0-0.8); Monocytes % (Auto) 5.5 % (0.0-7.3); Platelet Count 325 K/mm3 (140-440); Red Blood Count 4.36 M/mm3 (3.65-5.03); Red Cell Distribution Width 14.1 % (13.2-15.2)
[2020-04-23 21:32] LABS: Bilirubin,Urine NEG (Negative); Blood,Urine NEG (Negative); Color,Urine Yellow (Yellow); Protein,Urine <15 mg/dL mg/dL (Negative); Urobilinogen,Urine < 2.0 mg/dL (<2.0)
[2020-04-23] MEDS ORDERED: ACETAMINOPHEN 500 MG TAB PO ONE (22:34)
[2020-04-23] MEDS ORDERED: cephALEXin 500 MG CAP PO ONE (22:34)
--- NOTE | 2020-04-23 22:42 | Ultrasound Report ---
ULTRASOUND OBSTETRIC Indication: vaginal bleeding Findings: There is a single, living intrauterine . Corcoran-rump length = 2.97 cm = 9 weeks, 6 day(s). heart rate is 188 beats per minute. The ovaries cannot be identified There is no free fluid. Impression: Single, living intrauterine with estimated sonographic age of 9 weeks, 6 day(s). Signer Name: Brigido Dey MD Signed: 04/23/2020 10:38 PM Workstation Name: [id number]
--- NOTE | 2020-04-23 23:04 | Emergency Department Report ---
ED Female HPI - General Chief complaint: Vaginal Bleeding Stated complaint: 2 MOS /SPOTTING Source: patient Mode of arrival: Ambulatory Limitations: No Limitations - History of Present Illness Initial comments: Patient is a A1 19-year-old -Martiniquais female who is approximately 8 weeks gestation presents to the ED with complaint of acute onset persistent sup rapubic pain and vaginal spotting for the last 6 hours. Patient states that the pain and the spotting have been persistent since onset and appears to be getting worse. Patient denies dysuria, urinary frequency and urgency, chest pain, shortness of breath, dizziness, syncope, fever and chills, nausea and vomiting or vaginal discharge. MD Complaint: vaginal bleeding, pelvic pain -: Sudden, hour(s) (6) Location: suprapubic, other (vaginal) Radiation: non-radiating Severity: mild Severity scale (0 -10): 3 Quality: cramping, dull Consistency: constant Improves with: none Worsens with: none Are you Now?: Yes (8 weeks gestation) Associated Symptoms: denies other symptoms, vaginal bleeding, abdominal pain (suprapubic). denies: vaginal discharge, nausea/vomiting, fever/chills, headaches, loss of appetite, dysuria, hematuria, rash, seizure, shortness of breath, syncope, weakness - Related Data Sexually active: Yes : 2 Para: 0 A: 1 Previous Rx's Medication Instructions Recorded Last Taken Type Ibuprofen [Motrin] 600 mg PO Q8H PRN #20 tablet 01/18/19 Unknown Rx Sulfamethoxazole/Trimethoprim 1 each PO BID #20 tablet 01/18/19 Unknown Rx [Bactrim DS TAB] predniSONE [Deltasone] 40 mg PO QDAY #10 tab 01/18/19 Unknown Rx Vit-Fe Fumar-FA [ 1 tab PO QDAY #30 tablet 10/16/19 Unknown Rx Vitamin] cephALEXin [Keflex] 500 mg PO Q8HR 7 Days #21 cap 12/12/19 Unknown Rx traMADoL [Ultram] 50 mg PO Q6HR PRN #12 tablet 12/12/19 Unknown Rx Acetaminophen [Tylenol] 650 mg PO Q8HR PRN #14 capsule 02/13/20 Unknown Rx Sulfamethoxazole/Trimethoprim 1 each PO BID 7 Days #14 tablet 02/13/20 Unknown Rx [Bactrim DS TAB] cephALEXin [Keflex] 500 mg PO Q12HR #20 cap 02/18/20 Unknown Rx Clindamycin [Clindamycin CAP] 300 mg PO Q8HR #60 capsule 02/20/20 Unknown Rx Ibuprofen [Motrin] 600 mg PO Q8H PRN #24 tablet 02/20/20 Unknown Rx Sulfamethoxazole/Trimethoprim 1 each PO Q12H #20 tablet 02/20/20 Unknown Rx [Bactrim DS TAB] Acetaminophen [Tylenol] 500 mg PO Q6H PRN #30 tablet 04/23/20 Unknown Rx cephALEXin [Keflex] 500 mg PO Q8HR #30 cap 04/23/20 Unknown Rx Allergies Allergy/AdvReac Type Severity Reaction Status Date / Time No Known Allergies Allergy Verified 09/17/19 03:53 ED Review of Systems ROS: Stated complaint: 2 MOS /SPOTTING Other details as noted in HPI Constitutional: denies: chills, fever Eyes: denies: eye pain, eye discharge, vision change ENT: denies: ear pain, throat pain Respiratory: denies: cough, shortness of breath, wheezing Cardiovascular: denies: chest pain, palpitations Endocrine: no symptoms reported Gastrointestinal: abdominal pain (Suprapubic). denies: nausea, vomiting, diarrhea Genitourinary: hematuria, abnormal menses (Vaginal spotting). denies: urgency, dysuria, discharge Musculoskeletal: denies: back pain, joint swelling, arthralgia Skin: denies: rash, lesions Neurological: denies: headache, weakness, paresthesias Psychiatric: denies: anxiety, depression Hematological/Lymphatic: denies: easy bleeding, easy bruising ED Past Medical Hx - Past Medical History Previous Medical History?: Yes Hx Diabetes: Yes - Surgical History Past Surgical History?: No - Social History Smoking Status: Never Smoker Substance Use Type: None - Medications Home Medications: Home Medications Medication Instructions Recorded Confirmed Last Taken Type Ibuprofen [Motrin] 600 mg PO Q8H PRN #20 tablet 01/18/19 Unknown Rx Sulfamethoxazole/Trimethoprim 1 each PO BID #20 tablet 01/18/19 Unknown Rx [Bactrim DS TAB] predniSONE [Deltasone] 40 mg PO QDAY #10 tab 01/18/19 Unknown Rx Vit-Fe Fumar-FA [ 1 tab PO QDAY #30 tablet 10/16/19 Unknown Rx Vitamin] cephALEXin [Keflex] 500 mg PO Q8HR 7 Days #21 cap 12/12/19 Unknown Rx traMADoL [Ultram] 50 mg PO Q6HR PRN #12 tablet 12/12/19 Unknown Rx Acetaminophen [Tylenol] 650 mg PO Q8HR PRN #14 capsule 02/13/20 Unknown Rx Sulfamethoxazole/Trimethoprim 1 each PO BID 7 Days #14 tablet 02/13/20 Unknown Rx [Bactrim DS TAB] cephALEXin [Keflex] 500 mg PO Q12HR #20 cap 02/18/20 Unknown Rx Clindamycin [Clindamycin CAP] 300 mg PO Q8HR #60 capsule 02/20/20 Unknown Rx Ibuprofen [Motrin] 600 mg PO Q8H PRN #24 tablet 02/20/20 Unknown Rx Sulfamethoxazole/Trimethoprim 1 each PO Q12H #20 tablet 02/20/20 Unknown Rx [Bactrim DS TAB] Acetaminophen [Tylenol] 500 mg PO Q6H PRN #30 tablet 04/23/20 Unknown Rx cephALEXin [Keflex] 500 mg PO Q8HR #30 cap 04/23/20 Unknown Rx ED Physical Exam - General Limitations: No Limitations General appearance: alert, in no apparent distress - Head Head exam: Present: atraumatic, normocephalic, normal inspection - Eye Eye exam: Present: normal appearance, PERRL, EOMI Pupils: Present: normal accommodation - ENT ENT exam: Present: normal exam, normal orophraynx, mucous membranes moist, TM's normal bilaterally, normal external ear exam - Neck Neck exam: Present: normal inspection, full ROM - Respiratory Respiratory exam: Present: normal lung sounds bilaterally. Absent: respiratory distress, wheezes, rales, rhonchi, chest wall tenderness, accessory muscle use, decreased breath sounds, prolonged expiratory - Cardiovascular Cardiovascular Exam: Present: normal rhythm, tachycardia, normal heart sounds. Absent: systolic murmur, diastolic murmur, rubs, gallop - GI/Abdominal GI/Abdominal exam: Present: soft, normal bowel sounds. Absent: tenderness, guarding, rebound, hyperactive bowel sounds, hypoactive bowel sounds, organomegaly - Extremities Exam Extremities exam: Present: normal inspection, full ROM, normal capillary refill. Absent: tenderness, pedal edema - Back Exam Back exam: Present: normal inspection, full ROM. Absent: tenderness, CVA tenderness (L), muscle spasm, paraspinal tenderness, vertebral tenderness - Neurological Exam Neurological exam: Present: alert, oriented X3, CN II-XII intact, normal gait, reflexes normal - Psychiatric Psychiatric exam: Present: normal affect, normal mood - Skin Skin exam: Present: warm, dry, intact, normal color. Absent: rash ED Course Vital Signs 04/23/20 20:36 Temperature 98.1 F Pulse Rate 102 H Respiratory 18 Rate Blood Pressure 127/74 O2 Sat by Pulse 97 Oximetry ED Medical Decision Making - Lab Data Result diagrams: 04/23/20 20:52 - Radiology Data Radiology results: report reviewed, image reviewed Findings [facility] [address] [place] [address] Ultrasound Report Signed Patient: ALIA ADAMES MR#: [id number] : 2000 Acct:[id number] Age/Sex: 19 / F ADM Date: 04/23/20 Loc: ED Attending Dr: Ordering Physician: CARSON VELEZ MD Date of Service: 04/23/20 Procedure(s): US OB <= 14 wk fetus add gest Accession Number(s): [id number] cc: CARSON VELEZ MD ULTRASOUND OBSTETRIC Indication: vaginal bleeding Findings: There is a single, living intrauterine . [place]-rump length = 2.97 cm = 9 weeks, 6 day(s). heart rate is 188 beats per minute. The ovaries cannot be identified There is no free fluid. Impression: Single, living intrauterine with estimated sonographic age of 9 weeks, 6 day(s). Signer Name: Brigido Dey MD Signed: 04/23/2020 10:38 PM Workstation Name: [id number] Transcribed By: WG Dictated By: Brigido Dey MD Electronically Authenticated By: Brigido Dey MD Signed Date/Time: 04/23/202237 DD/ 35 TD/TT: - Medical Decision Making This is a A1 19-year-old -Martiniquais female who is approximately 8 weeks gestation presents to the ED with complaint of acute onset persistent suprapubic pain and vaginal spotting for the last 6 hours. Patient states that the pain and the spotting have been persistent since onset and appears to be getting worse. In the ED, patient is alert and oriented x3 and is not in distress. Lab test results [place] [address], and the urinalysis showed urinary tract infection. Patient was treated for UTI in the ED with Keflex p.o. x1. On reevaluation, patient's pain is well controlled medications. Transvaginal ultrasound showed a single, living intrauterine with estimated sonographic age of 9 weeks, 6 day(s), and a heart rate of 188 bpm. Patient was discharged home and advised to maintain a complete pelvic rest with no physical or strenuous activities or sexual activities and to follow-up with [facility] physician in 5 to 7 days for reevaluation or return to the ED immediately if symptoms get worse. - Differential Diagnosis Threatened miscarriage; ovarian cyst; UTI; dermoid cyst;subchorionic bleed Critical care attestation.: If time is entered above; I have spent that time in minutes in the direct care of this critically ill patient, excluding procedure time. ED Disposition Clinical Impression: Threatened miscarriage, Acute urinary tract infection Abdominal pain in Qualifiers: Trimester: first trimester Qualified Code(s): O26.891 - Other specified related conditions, first trimester; R10.9 - Unspecified abdominal pain Disposition: DC-01 TO HOME OR SELFCARE Is pt being admited?: No Does the pt Need Aspirin: No Condition: Stable Instructions: Urinary Tract Infection in Women (ED), Threatened Miscarriage (ED) Additional Instructions: Maintain a complete pelvic rest with no physical or strenuous or sexual activities. Take Tylenol as needed for pain, and follow-up with your [facility] physician in 5 to 7 days for reevaluation. Return to the ED immediately if symptoms get worse. Prescriptions: Acetaminophen [Tylenol] 500 mg PO Q6H PRN #30 tablet PRN Reason: Pain , Severe (7-10) cephALEXin [Keflex] 500 mg PO Q8HR #30 cap Referrals: SIERRA CORDOVA MD [Staff Physician] - 3-5 Days Time of Disposition: 23:08 Print Language: BELARUSIAN
== END 2020-04-24 01:38 | disposition home or self-care (01) ==
LOC: ED 20:10
DX: O20.0 Threatened abortion (principal); O23.41 Unspecified infection of urinary tract in pregnancy, first trimester; E11.9 Type 2 diabetes mellitus without complications; Z79.899 Other long term (current) drug therapy; Z3A.08 8 weeks gestation of pregnancy
CPT/HCPCS: 36415; 76801; 76802; 81001; 84702; 85025; 86900; 86901; 87086

== ENCOUNTER 2020-06-04 09:49 | Emergency (ER) | payer SELFPAY ==
--- NOTE | 2020-06-04 11:03 | Event Note ---
ED Screening Note ED Screening Note: 16 weeks per patient Last menstrual cycle March 2020 Has not received care yet Pelvic pain Dysuria, cloudy urine No fever, vomiting, diarrhea, vaginal bleeding or discharge Past medical history of insulin-dependent diabetic States she has not used her insulin in a month No allergies to medicines /P: 0/A: 1 This initial assessment/diagnostic orders/clinical plan/treatment(s) is/are subject to change based on patients health status, clinical progression and re- assessment by fellow clinical providers in the ED. Further treatment and workup at subsequent clinical providers discretion. Patient/guardian urged not to elope from the ED as their condition may be serious if not clinically assessed and managed. Initial orders include: Labs, urine, US
[2020-06-04 11:11] LABS: Bacteria,Urine 2+ /HPF (Negative); Bilirubin,Urine NEG (Negative); Blood,Urine SM (Negative); Color,Urine Yellow (Yellow); Mucus,Urine FEW /HPF; Urobilinogen,Urine < 2.0 mg/dL (<2.0)
[2020-06-04 11:12] LABS: WBC,Urine > 182.0 /HPF (0.0-6.0)
[2020-06-04] MEDS ORDERED: cefTRIAXone/NS 1 GM/50 ML 1 GM/50 ML BAG IV ONE (11:26)
[2020-06-04] MEDS ORDERED: ACETAMINOPHEN 500 MG TAB PO ONE (11:26)
[2020-06-04] MEDS ORDERED: SODIUM CHLORIDE 0.9% 1000 ML 1,000 ML IV ONE (11:26)
[2020-06-04] MEDS ORDERED: AZITHROMYCIN 250 MG TAB PO ONE (11:27)
--- NOTE | 2020-06-04 11:30 | Emergency Department Report ---
ED Female HPI - General Chief complaint: Abdominal Pain Stated complaint: 16 WKS ABD PAINS Time Seen by Provider: 06/04/20 11:00 Source: patient Mode of arrival: Ambulatory Limitations: No Limitations - History of Present Illness Initial comments: This is a 20-year-old female nontoxic, well nourished in appearance, no acute signs of distress presents to the ED with c/o of pelvic pain, dysuria, polyuria, and urinary frequency several days. Patient stated she is about 16 weeks . Denies any OBGYN follow-ups. Patient denies any vaginal discharge, bleeding, ulcers or lesions. Denies any vaginal bleeding. Patient denies any back pain. Patient denies any upper abdominal pain. Patient denies any nausea, vomiting, chest pain, shortness of breathe, fever, chills, headache, back pain, numbness, tingling, stiff neck. Patient denies any allergies or PMH. PAtient also stated she is out of her insulin medication. MD Complaint: dysuria, pelvic pain -: days(s) Radiation: non-radiating Severity: mild Severity scale (0 -10): 3 Quality: cramping Consistency: constant Improves with: none Worsens with: none Are you Now?: Yes Associated Symptoms: dysuria. denies: vaginal discharge, vaginal bleeding, abdominal pain, nausea/vomiting, fever/chills, headaches, loss of appetite, hematuria, rash, seizure, shortness of breath, syncope, weakness - Related Data Sexually active: Yes Previous Rx's Medication Instructions Recorded Last Taken Type Ibuprofen [Motrin] 600 mg PO Q8H PRN #20 tablet 01/18/19 Unknown Rx Sulfamethoxazole/Trimethoprim 1 each PO BID #20 tablet 01/18/19 Unknown Rx [Bactrim DS TAB] predniSONE [Deltasone] 40 mg PO QDAY #10 tab 01/18/19 Unknown Rx Vit-Fe Fumar-FA [ 1 tab PO QDAY #30 tablet 10/16/19 Unknown Rx Vitamin] cephALEXin [Keflex] 500 mg PO Q8HR 7 Days #21 cap 12/12/19 Unknown Rx traMADoL [Ultram] 50 mg PO Q6HR PRN #12 tablet 12/12/19 Unknown Rx Acetaminophen [Tylenol] 650 mg PO Q8HR PRN #14 capsule 02/13/20 Unknown Rx Sulfamethoxazole/Trimethoprim 1 each PO BID 7 Days #14 tablet 02/13/20 Unknown Rx [Bactrim DS TAB] cephALEXin [Keflex] 500 mg PO Q12HR #20 cap 02/18/20 Unknown Rx Clindamycin [Clindamycin CAP] 300 mg PO Q8HR #60 capsule 02/20/20 Unknown Rx Ibuprofen [Motrin] 600 mg PO Q8H PRN #24 tablet 02/20/20 Unknown Rx Sulfamethoxazole/Trimethoprim 1 each PO Q12H #20 tablet 02/20/20 Unknown Rx [Bactrim DS TAB] Acetaminophen [Tylenol] 500 mg PO Q6H PRN #30 tablet 04/23/20 Unknown Rx cephALEXin [Keflex] 500 mg PO Q8HR #30 cap 04/23/20 Unknown Rx Nitrofurantoin [place]/M-Cryst 100 mg PO Q12HR #14 capsule 06/04/20 Unknown Rx [Macrobid CAP] metroNIDAZOLE [metroNIDAZOLE 70 gm VG DAILY 5 Days gel.w.appl 06/04/20 Unknown Rx VAGINAL 0.75% gel] Allergies Allergy/AdvReac Type Severity Reaction Status Date / Time No Known Allergies Allergy Verified 09/17/19 03:53 ED Review of Systems ROS: Stated complaint: 16 WKS ABD PAINS Other details as noted in HPI Comment: All other systems reviewed and negative Constitutional: denies: chills, fever Eyes: denies: eye pain, eye discharge, vision change ENT: denies: ear pain, throat pain Respiratory: denies: cough, shortness of breath, wheezing Cardiovascular: denies: chest pain, palpitations Endocrine: no symptoms reported Gastrointestinal: denies: abdominal pain, nausea, diarrhea Genitourinary: urgency, dysuria, frequency. denies: hematuria, discharge, abnormal menses, dyspareunia Musculoskeletal: denies: back pain, joint swelling, arthralgia Skin: denies: rash, lesions Neurological: denies: headache, weakness, paresthesias Psychiatric: denies: anxiety, depression Hematological/Lymphatic: denies: easy bleeding, easy bruising ED Past Medical Hx - Past Medical History Previous Medical History?: Yes Hx Diabetes: Yes - Surgical History Past Surgical History?: No - Social History Smoking Status: Never Smoker Substance Use Type: None - Medications Home Medications: Home Medications Medication Instructions Recorded Confirmed Last Taken Type Ibuprofen [Motrin] 600 mg PO Q8H PRN #20 tablet 01/18/19 Unknown Rx Sulfamethoxazole/Trimethoprim 1 each PO BID #20 tablet 01/18/19 Unknown Rx [Bactrim DS TAB] predniSONE [Deltasone] 40 mg PO QDAY #10 tab 01/18/19 Unknown Rx Vit-Fe Fumar-FA [ 1 tab PO QDAY #30 tablet 10/16/19 Unknown Rx Vitamin] cephALEXin [Keflex] 500 mg PO Q8HR 7 Days #21 cap 12/12/19 Unknown Rx traMADoL [Ultram] 50 mg PO Q6HR PRN #12 tablet 12/12/19 Unknown Rx Acetaminophen [Tylenol] 650 mg PO Q8HR PRN #14 capsule 02/13/20 Unknown Rx Sulfamethoxazole/Trimethoprim 1 each PO BID 7 Days #14 tablet 02/13/20 Unknown Rx [Bactrim DS TAB] cephALEXin [Keflex] 500 mg PO Q12HR #20 cap 02/18/20 Unknown Rx Clindamycin [Clindamycin CAP] 300 mg PO Q8HR #60 capsule 02/20/20 Unknown Rx Ibuprofen [Motrin] 600 mg PO Q8H PRN #24 tablet 02/20/20 Unknown Rx Sulfamethoxazole/Trimethoprim 1 each PO Q12H #20 tablet 02/20/20 Unknown Rx [Bactrim DS TAB] Acetaminophen [Tylenol] 500 mg PO Q6H PRN #30 tablet 04/23/20 Unknown Rx cephALEXin [Keflex] 500 mg PO Q8HR #30 cap 04/23/20 Unknown Rx Nitrofurantoin [place]/M-Cryst 100 mg PO Q12HR #14 capsule 06/04/20 Unknown Rx [Macrobid CAP] metroNIDAZOLE [metroNIDAZOLE 70 gm VG DAILY 5 Days gel.w.appl 06/04/20 Unknown Rx VAGINAL 0.75% gel] ED Physical Exam - General Limitations: No Limitations General appearance: alert, in no apparent distress - Head Head exam: Present: atraumatic, normocephalic - Eye Eye exam: Present: normal appearance - Neck Neck exam: Present: normal inspection, full ROM. Absent: tenderness, meningismus, lymphadenopathy - Respiratory Respiratory exam: Present: normal lung sounds bilaterally. Absent: respiratory distress, wheezes, rales, rhonchi, stridor, chest wall tenderness, accessory muscle use, decreased breath sounds, prolonged expiratory - Cardiovascular Cardiovascular Exam: Present: regular rate, normal rhythm, tachycardia, normal heart sounds. Absent: irregular rhythm, systolic murmur, diastolic murmur, rubs, gallop - GI/Abdominal GI/Abdominal exam: Present: soft, normal bowel sounds. Absent: distended, tenderness, guarding, rebound, rigid, diminished bowel sounds - External exam: Present: normal external exam, other (Adjunct Physics Instructor RN present during exam). Absent: erythema, lesions, lacerations, ecchymosis, bleeding Speculum exam: Present: cervical discharge, other (Adjunct Physics Instructor RN present during exam). Absent: erythema, vaginal discharge, vaginal bleeding, foreign body, tissue, laceration Bi-manual exam: Present: cervical motion tendernes, other (Adjunct Physics Instructor RN present during exam). Absent: adnexal tenderness, adnexal mass, uterine enlargement, uterine tenderness - Extremities Exam Extremities exam: Present: full ROM - Back Exam Back exam: Present: normal inspection, full ROM. Absent: tenderness, CVA tenderness (R), CVA tenderness (L), muscle spasm, paraspinal tenderness, vertebral tenderness, rash noted - Neurological Exam Neurological exam: Present: alert, oriented X3, normal gait - Psychiatric Psychiatric exam: Present: normal affect, normal mood - Skin Skin exam: Present: warm, dry, intact, normal color. Absent: rash ED Course Vital Signs 06/04/20 06/04/20 10:08 14:58 Temperature 98.1 F Pulse Rate 110 H 76 Respiratory 18 14 Rate Blood Pressure 112/75 Blood Pressure 136/78 [Left] O2 Sat by Pulse 98 100 Oximetry - Reevaluation(s) Reevaluation #1: 06/04/20 11:42 Patient is speaking in full sentences with no signs of distress noted. ED Medical Decision Making - Lab Data Result diagrams: 06/04/20 11:08 06/04/20 11:08 Lab Results 06/04/20 06/04/20 06/04/20 Range/Units 10:31 10:42 11:08 WBC 9.7 (4.5-11.0) K/mm3 RBC 4.37 (3.65-5.03) M/mm3 Hgb 12.8 (10.1-14.3) gm/dl Hct 37.8 (30.3-42.9) % MCV 87 (79-97) fl MCH 29 (28-32) pg MCHC 34 (30-34) % RDW 14.1 (13.2-15.2) % Plt Count 328 (140-440) K/mm3 Lymph % (Auto) 19.4 (13.4-35.0) % [place] % (Auto) 5.0 (0.0-7.3) % Eos % (Auto) 0.3 (0.0-4.3) % Baso % (Auto) 0.1 (0.0-1.8) % Lymph # (Auto) 1.9 (1.2-5.4) K/mm3 [place] # (Auto) 0.5 (0.0-0.8) K/mm3 Eos # (Auto) 0.0 (0.0-0.4) K/mm3 Baso # (Auto) 0.0 (0.0-0.1) K/mm3 Seg Neutrophils % 75.2 H (40.0-70.0) % Seg Neutrophils # 7.3 (1.8-7.7) K/mm3 Sodium (137-145) mmol/L Potassium (3.6-5.0) mmol/L Chloride (98-107) mmol/L Carbon Dioxide (22-30) mmol/L Anion Gap mmol/L BUN (7-17) mg/dL Creatinine (0.6-1.2) mg/dL Estimated GFR ml/min BUN/Creatinine Ratio % Glucose (65-100) mg/dL POC Glucose 255 H (70-105) mg/dL Calcium (8.4-10.2) mg/dL Total Bilirubin (0.1-1.2) mg/dL AST (5-40) units/L ALT (7-56) units/L Alkaline Phosphatase (35-129) units/L Total Protein (6.3-8.2) g/dL Albumin (3.9-5) g/dL Albumin/Globulin Ratio % HCG, Quant (0-4) mIU/mL Urine Color Yellow (Yellow) Urine Turbidity Cloudy (Clear) Urine pH 6.0 (5.0-7.0) Ur Specific [place] 1.030 (1.003-1.030) Urine Protein 30 mg/dl (Negative) mg/dL Urine Glucose (UA) >=500 (Negative) mg/dL Urine Ketones 20 (Negative) mg/dL Urine Blood Sm (Negative) Urine Nitrite Pos (Negative) Urine Bilirubin Neg (Negative) Urine Urobilinogen < 2.0 (<2.0) mg/dL Ur Leukocyte Esterase Lg (Negative) Urine WBC (Auto) > 182.0 H (0.0-6.0) /HPF Urine RBC (Auto) 27.0 (0.0-6.0) /HPF U Epithel Cells (Auto) 11.0 (0-13.0) /HPF Urine Bacteria (Auto) 2+ (Negative) /HPF Urine WBC Clumps 2+ /HPF Ur Transition Epith Cell 3 /HPF Urine Mucus Few /HPF 06/04/20 06/04/20 Range/Units 11:08 11:08 WBC (4.5-11.0) K/mm3 RBC (3.65-5.03) M/mm3 Hgb (10.1-14.3) gm/dl Hct (30.3-42.9) % MCV (79-97) fl MCH (28-32) pg MCHC (30-34) % RDW (13.2-15.2) % Plt Count (140-440) K/mm3 Lymph % (Auto) (13.4-35.0) % [place] % (Auto) (0.0-7.3) % Eos % (Auto) (0.0-4.3) % Baso % (Auto) (0.0-1.8) % Lymph # (Auto) (1.2-5.4) K/mm3 [place] # (Auto) (0.0-0.8) K/mm3 Eos # (Auto) (0.0-0.4) K/mm3 Baso # (Auto) (0.0-0.1) K/mm3 Seg Neutrophils % (40.0-70.0) % Seg Neutrophils # (1.8-7.7) K/mm3 Sodium 134 L (137-145) mmol/L Potassium 4.3 (3.6-5.0) mmol/L Chloride 100.8 (98-107) mmol/L Carbon Dioxide 21 L (22-30) mmol/L Anion Gap 17 mmol/L BUN 7 (7-17) mg/dL Creatinine 0.4 L (0.6-1.2) mg/dL Estimated GFR > 60 ml/min BUN/Creatinine Ratio 18 % Glucose 269 H (65-100) mg/dL POC Glucose (70-105) mg/dL Calcium 9.1 (8.4-10.2) mg/dL Total Bilirubin < 0.20 (0.1-1.2) mg/dL AST 12 (5-40) units/L ALT 15 (7-56) units/L Alkaline Phosphatase 48 (35-129) units/L Total Protein 7.3 (6.3-8.2) g/dL Albumin 3.4 L (3.9-5) g/dL Albumin/Globulin Ratio 0.9 % HCG, Quant 43040 H (0-4) mIU/mL Urine Color (Yellow) Urine Turbidity (Clear) Urine pH (5.0-7.0) Ur Specific [place] (1.003-1.030) Urine Protein (Negative) mg/dL Urine Glucose (UA) (Negative) mg/dL Urine Ketones (Negative) mg/dL Urine Blood (Negative) Urine Nitrite (Negative) Urine Bilirubin (Negative) Urine Urobilinogen (<2.0) mg/dL Ur Leukocyte Esterase (Negative) Urine WBC (Auto) (0.0-6.0) /HPF Urine RBC (Auto) (0.0-6.0) /HPF U Epithel Cells (Auto) (0-13.0) /HPF Urine Bacteria (Auto) (Negative) /HPF Urine WBC Clumps /HPF Ur Transition Epith Cell /HPF Urine Mucus /HPF - Radiology Data Referring Physician: MARIZA MORALES Patient Name: ALIA ADAMES Date of : 2000 Sex: Female Report Date: 2020-06-04 Report Status: Finalized [facility] [address] [place] [address] Ultrasound Report Signed Patient: ALIA ADAMES MR#: [id number] : 2000 Acct:[id number] Age/Sex: 20 / F ADM Date: 06/04/20 Loc: ED Attending Dr: Ordering Physician: NORA DEL TORO Date of Service: 06/04/20 Procedure(s): US OB >= 14 weeks Fetus Accession Number(s): [id number] cc: NORA DEL TORO ULTRASOUND OBSTETRIC INDICATION / CLINICAL INFORMATION: 16 weeks, pelvic pain. Clinical Gestational Age (GA): 11.1 weeks.days TECHNIQUE: Transabdominal. COMPARISON: OB ultrasound 04/23/2020 FINDINGS: There is a single intrauterine . Biparietal Diameter = 3.2 cm = 16.0 weeks.days Head Circumference = 11.8 cm = 15.6 weeks.days Abdominal Circumference = 9.4 cm = 15.4 weeks.days Femur Length = 1.5 cm = 14.4 weeks.days Average Ultrasound Age (AUA) = 15.4 weeks.days Heart Rate: 149 beats per minute. Estimated Weight in grams (if calculated): Not calculated Estimated Weight Growth Percentile (if calculated): Not calculated Position: cephalic. Cervix: Appears closed noting slight obscuration due to artifact. Length in cm (if measured): 2.5 cm Placenta: Grade 0, anterior position, and appears free of the os. Amniotic Fluid Volume: Subjectively normal Amniotic Fluid Index (GENNY) in cm (if calculated): Not calculated. IMPRESSION: 1. Single, living intrauterine with estimated sonographic age of 15.4 weeks.days 2. Cervical length is short at 2.5 cm. Although there is some obscuration the cervix appears closed. Recommend close follow-up and further evaluation as warranted. Signer Name: Rosina Tamez MD Signed: 06/04/2020 12:09 PM Workstation Name: [id number] Transcribed By: Dictated By: ROSINA TAMEZ III Electronically Authenticated By: ROSINA TAMEZ III Signed Date/Time: 06/04/201208 DD/ 03 TD/TT: - Medical Decision Making 20-year-old female that presents with cervical motion tenderness, BV and UTI. Patient is stable and was examined by me. Patient received Rocephin and azithromycin in the ER. Patient was notified of the ultrasound report with no questions noted by the patient. Patient was instructed to follow-up with a [facility] doctor in 3-5 days or if symptoms worsen and continue return to emergency room as soon as possible. At time of discharge, the patient does not seem toxic or ill in appearance. No acute signs of distress noted. Patient agrees to discharge treatment plan of care. No further questions noted by the patient. Critical care attestation.: If time is entered above; I have spent that time in minutes in the direct care of this critically ill patient, excluding procedure time. ED Disposition Clinical Impression: Bacterial vaginosis, Possible exposure to STD, Cervical motion tenderness, Pelvic pain during UTI (urinary tract infection) Qualifiers: Urinary tract infection type: acute cystitis Hematuria presence: with hematuria Qualified Code(s): N30.01 - Acute cystitis with hematuria Disposition: TO HOME OR SELFCARE Is pt being admited?: No Does the pt Need Aspirin: No Condition: Stable Instructions: (ED), Bacterial Vaginosis (ED), Urinary Tract Infection in Women (ED) Additional Instructions: Follow-up with a [facility] doctor in 3-5 days or if symptoms worsen and continue return to emergency room as soon as possible. Prescriptions: Nitrofurantoin [place]/M-Cryst [Macrobid CAP] 100 mg PO Q12HR #14 capsule metroNIDAZOLE [metroNIDAZOLE VAGINAL 0.75% gel] 70 gm VG DAILY 5 Days gel.w.appl Referrals: [facility] [Primary Care Provider] - 3-5 Days [facility] [Provider Group] - 3-5 Days [facility] [Provider Group] - 3-5 Days Forms: Work/School Release Form(ED)
[2020-06-04 11:47] LABS: Basophils % (Auto) 0.1 % (0.0-1.8); Eosinophils % (Auto) 0.3 % (0.0-4.3); Hematocrit 37.8 % (30.3-42.9); Hemoglobin 12.8 gm/dl (10.1-14.3); Lymphocytes # (Auto) 1.9 K/mm3 (1.2-5.4); Lymphocytes % (Auto) 19.4 % (13.4-35.0); Mean Corpuscular HGB Conc 34 % (30-34); Mean Corpuscular Volume 87 fl (79-97); Monocytes # (Auto) 0.5 K/mm3 (0.0-0.8); Platelet Count 328 K/mm3 (140-440); Red Blood Count 4.37 M/mm3 (3.65-5.03); Red Cell Distribution Width 14.1 % (13.2-15.2)
[2020-06-04 12:08] LABS: Alanine Aminotransferase 15 units/L (7-56); Albumin 3.4 g/dL (3.9-5); Blood Urea Nitrogen 7 mg/dL (7-17); Calcium 9.1 mg/dL (8.4-10.2); Hemolysis Index 12
--- NOTE | 2020-06-04 12:13 | Ultrasound Report ---
ULTRASOUND OBSTETRIC INDICATION / CLINICAL INFORMATION: 16 weeks, pelvic pain. Clinical Gestational Age (GA): 11.1 weeks.days TECHNIQUE: Transabdominal. COMPARISON: OB ultrasound 04/23/2020 FINDINGS: There is a single intrauterine . Biparietal Diameter = 3.2 cm = 16.0 weeks.days Head Circumference = 11.8 cm = 15.6 weeks.days Abdominal Circumference = 9.4 cm = 15.4 weeks.days Femur Length = 1.5 cm = 14.4 weeks.days Average Ultrasound Age (AUA) = 15.4 weeks.days Heart Rate: 149 beats per minute. Estimated Weight in grams (if calculated): Not calculated Estimated Weight Growth Percentile (if calculated): Not calculated Position: cephalic. Cervix: Appears closed noting slight obscuration due to artifact. Length in cm (if measured): 2.5 cm Placenta: Grade 0, anterior position, and appears free of the os. Amniotic Fluid Volume: Subjectively normal Amniotic Fluid Index (GENNY) in cm (if calculated): Not calculated. IMPRESSION: 1. Single, living intrauterine with estimated sonographic age of 15.4 weeks.days 2. Cervical length is short at 2.5 cm. Although there is some obscuration the cervix appears closed. Recommend close follow-up and further evaluation as warranted. Signer Name: Bhupinder Tamez MD Signed: 06/04/2020 12:09 PM Workstation Name: [id number]
[2020-06-04 12:15] LABS: BUN/Creatinine Ratio 18
[2020-06-04 14:59] VITALS: BP 136/78
== END 2020-06-04 14:58 | disposition home or self-care (01) ==
LOC: ED 09:49
DX: O23.42 Unspecified infection of urinary tract in pregnancy, second trimester (principal); O26.892 Other specified pregnancy related conditions, second trimester; Z20.2 Contact with and (suspected) exposure to infections with a predominantly sexual mode of transmission; Z3A.15 15 weeks gestation of pregnancy; E11.9 Type 2 diabetes mellitus without complications; Z79.1 Long term (current) use of non-steroidal anti-inflammatories (NSAID); Z79.899 Other long term (current) drug therapy
CPT/HCPCS: 36415; 76805; 80053; 81001; 82962; 84702; 85025; 87210; 87591; 96365; 99285; J0696; J7030

== ENCOUNTER 2020-11-05 17:30 | Inpatient (IN) | payer MEDICAID ==
[2020-11-05] MEDS ORDERED: CARBOPROST TROMETHAMINE 250 MCG/1 ML INJ IM PRN (19:05)
[2020-11-05] MEDS ORDERED: LOPERAMIDE 2 MG CAP PO PRN (19:05)
[2020-11-05] MEDS ORDERED: DOCUSATE SODIUM 100 MG CAP PO PRN (19:05)
[2020-11-05] MEDS ORDERED: fentaNYL 100 MCG/2 ML INJ IV PRN (19:05)
[2020-11-05] MEDS ORDERED: ePHEDrine SULFATE 50 MG/1 ML INJ IV PRN (19:05)
[2020-11-05] MEDS ORDERED: TERBUTALINE 1 MG/1 ML INJ SUB-Q PRN (19:05)
[2020-11-05] MEDS ORDERED: DINOPROSTONE 10 MG VAG SUPP VG ONE (19:05)
[2020-11-05] MEDS ORDERED: LIDOCAINE (2%) 20 MG/1 ML VIAL 20 ML MDV INFILTRATI ONE (19:05)
[2020-11-05] MEDS ORDERED: BUTORPHANOL 2 MG/1 ML INJ IV PRN (19:05)
[2020-11-05] MEDS ORDERED: MINERAL OIL 30 ML ORAL LIQD PO PRN (19:05)
[2020-11-05] MEDS ORDERED: DEXTROSE 50% IN WATER (25GM) 50 ML SYRINGE IV PRN (19:05)
[2020-11-05] MEDS ORDERED: miSOPROStol 200 MCG TAB PR PRN (19:05)
[2020-11-05] MEDS ORDERED: ONDANSETRON 4 MG/2 ML INJ IV PRN (19:05)
[2020-11-05] MEDS ORDERED: OXYTOCIN 10 UNIT/1 ML INJ IM PRN (19:05)
[2020-11-05] MEDS ORDERED: NALOXONE 0.4 MG/1 ML INJ IV PRN (19:05)
[2020-11-05] MEDS ORDERED: ACETAMINOPHEN 325 MG TAB PO PRN (19:05)
--- NOTE | 2020-11-05 19:13 | History and Physical Report ---
History of Present Illness Date of examination: 11/05/20 Date of admission: 11/05/20 17:30 Chief complaint: sent from [facility] for delivery History of present illness: Pt is a 20 year old LUCY 12/03/20 at 36w0d who presents after [facility] appt for induction of labor secondary to elevated blood pressures, oligohydramnios, severe IUGR, and elevated doppler studies. She denies headache, blurry vision, or RUQ pain. 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 She is GBS unknown. She has been taking low dose aspirin daily. 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 Family/Genetic History: diabetes Social history: no significant social history - Obstetrical History Expected Date of Delivery: 12/03/20 Actual Gestation: 36 Week(s) 1 Day(s) : 2 Para: 0 Hx # Term Pregnancies: 0 Number of Pregnancies: 0 Spontaneous Abortions: 1 Induced : 0 Number of Living Children: 0 Medications and Allergies Allergies Allergy/AdvReac Type Severity Reaction Status Date / Time No Known Allergies Allergy Verified 11/05/20 18:57 Home Medications Medication Instructions Recorded Confirmed Last Taken Type Ibuprofen [Motrin] 600 mg PO Q8H PRN #20 tablet 01/18/19 11/06/20 Unknown Rx Sulfamethoxazole/Trimethoprim 1 each PO BID #20 tablet 01/18/19 11/06/20 Unknown Rx [Bactrim DS TAB] predniSONE [Deltasone] 40 mg PO QDAY #10 tab 01/18/19 11/05/20 Unknown Rx Vit-Fe Fumar-FA [ 1 tab PO QDAY #30 tablet 10/16/19 11/06/20 11/05/20 Rx Vitamin] cephALEXin [Keflex] 500 mg PO Q8HR 7 Days #21 cap 12/12/19 11/05/20 Unknown Rx traMADoL [Ultram] 50 mg PO Q6HR PRN #12 tablet 12/12/19 11/05/20 Unknown Rx Acetaminophen [Tylenol] 650 mg PO Q8HR PRN #14 capsule 02/13/20 11/06/20 Unknown Rx Sulfamethoxazole/Trimethoprim 1 each PO BID 7 Days #14 tablet 02/13/20 11/05/20 Unknown Rx [Bactrim DS TAB] cephALEXin [Keflex] 500 mg PO Q12HR #20 cap 02/18/20 11/05/20 Unknown Rx Clindamycin [Clindamycin CAP] 300 mg PO Q8HR #60 capsule 02/20/20 11/06/20 Unknown Rx Ibuprofen [Motrin] 600 mg PO Q8H PRN #24 tablet 02/20/20 11/06/20 Unknown Rx Sulfamethoxazole/Trimethoprim 1 each PO Q12H #20 tablet 02/20/20 11/05/20 Unknown Rx [Bactrim DS TAB] Acetaminophen [Tylenol] 500 mg PO Q6H PRN #30 tablet 04/23/20 11/06/20 Unknown R x cephALEXin [Keflex] 500 mg PO Q8HR #30 cap 04/23/20 11/05/20 Unknown Rx Nitrofurantoin [place]/M-Cryst 100 mg PO Q12HR #14 capsule 06/04/20 11/06/20 Unknown Rx [Macrobid CAP] metroNIDAZOLE [metroNIDAZOLE 70 gm VG DAILY 5 Days gel.w.appl 06/04/20 11/05/20 Unknown Rx VAGINAL 0.75% gel] Review of Systems All systems: negative - Vital Signs Vital signs: Vital Signs Pulse Resp BP 105 H 15 157/102 11/05/20 17:39 11/05/20 17:39 11/05/20 17:39 Temp Pulse Resp BP Pulse Ox 98.6 F 102 H 15 164/105 99 11/05/20 18:25 11/05/20 19:10 11/05/20 18:25 11/05/20 19:10 11/05/20 19:10 - Physical Exam Breasts: Positive: deferred Abdomen: Positive: soft (gravid ) Uterus: Positive: enlarged (gravid ) Extremities: Positive: edema (trace) Results Result Diagrams: 11/05/20 18:20 11/05/20 19:55 All other labs normal. 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
[2020-11-05] MEDS ORDERED: CALCIUM GLUCONATE 1000 MG/10 ML INJ IV ONE (19:17)
[2020-11-05] MEDS ORDERED: MAGNESIUM SULFATE 4 GM/100 ML BAG IV ONE (19:17)
[2020-11-05 19:25] LABS: Hematocrit 37.5 % (30.3-42.9); Hemoglobin 12.7 gm/dl (10.1-14.3); Mean Corpuscular HGB Conc 34 % (30-34); Mean Corpuscular Volume 87 fl (79-97); Platelet Count 258 K/mm3 (140-440); Red Blood Count 4.32 M/mm3 (3.65-5.03); Red Cell Distribution Width 14.4 % (13.2-15.2)
[2020-11-05] MEDS ORDERED: AMPICILLIN/NS 2 GM/100 ML 2 GM/100 ML BAG IV ONE (19:30)
[2020-11-05] MEDS ORDERED: LACTATED RINGERS 1,000 ML IV SCH (19:30)
[2020-11-05] MEDS: hydrALAZINE 20 MG/1 ML INJ IV PRN (19:46)
[2020-11-05] MEDS ORDERED: BETAMET ACET/BETAMET NA PH 6 MG/ML INJ 5 ML MDV IM SCH (20:00)
[2020-11-05] MEDS ORDERED: OXYTOCIN DRIP 30 UNITS/500 ML BAG IV SCH ×2 (20:00)
[2020-11-05] MEDS: MAGNESIUM SULFATE 40GM/1000ML 40 GM/1,000 ML BAG IV SCH (20:29)
[2020-11-05 20:36] LABS: Bilirubin,Urine NEG (Negative); Color,Urine Yellow (Yellow)
[2020-11-05 20:37] LABS: Blood,Urine NEG (Negative); Mucus,Urine FEW /HPF
[2020-11-05 20:45] LABS: Alanine Aminotransferase 19 units/L (7-56); Uric Acid 6.1 mg/dL (3.5-7.6)
[2020-11-05] MEDS: valACYclovir 500 MG TAB PO SCH (21:09)
[2020-11-05] MEDS ORDERED: AMPICILLIN/NS 1 GM/50 ML 1 GM/50 ML BAG IV SCH (23:45)
[2020-11-05] MEDS: ACETAMINOPHEN 325 MG TAB PO PRN (23:56)
[2020-11-06] MEDS: BUTORPHANOL 2 MG/1 ML INJ IV PRN ×2 (01:49→05:49)
[2020-11-06] MEDS: hydrALAZINE 20 MG/1 ML INJ IV PRN (05:50)
[2020-11-06] MEDS ORDERED: AMPICILLIN/NS 2 GM/100 ML 2 GM/100 ML BAG IV ONE (06:00)
[2020-11-06] MEDS: INSULIN REGULAR, HUMAN 100 UNITS/1 ML SUB-Q SCH ×2 (06:30→11:04)
--- NOTE | 2020-11-06 08:32 | Anesthesia Consultation ---
Anesthesia Consult and Med Hx Date of service: 11/06/20 - Airway Anesthetic Teeth Evaluation: Good ROM Head & Neck: Adequate Mental/Hyoid Distance: Adequate Mallampati Class: Class II Intubation Access Assessment: Good - Pulmonary Exam CTA: Yes - Cardiac Exam Cardiac Exam: RRR - Pre-Operative Health Status ASA Pre-Surgery Classification: ASA3 Proposed Anesthetic Plan: Epidural - Pulmonary Hx Smoking: No Hx Asthma: No Hx Respiratory Symptoms: No SOB: No COPD: No Home Oxygen Therapy: No Hx Pneumonia: No Hx Sleep Apnea: No - Cardiovascular System Hx Hypertension: No Hx Coronary Artery Disease: No Hx Heart Attack/AMI: No Hx Angina: No Hx Percutaneous Transluminal Coronary Angioplasty (PTCA): No Hx Cardia Arrhythmia: No Hx Pacemaker: No Hx Internal Defibrillator: No Hx Valvular Heart Disease: No Hx Heart Murmur: No Hx Peripheral Vascular Disease: No - Central Nervous System Hx Neuromuscular Disorder: No Hx Seizures: No CVA: No Hx Back Pain: No Hx Psychiatric Problems: No - Gastrointestinal Hx Ulcer: No Hx Gastroesophageal Reflux Disease: Yes - Endocrine Hx Renal Disease: No Hx End Stage Renal Disease: No Hx Cirrhosis: No Hx Liver Disease: No Hx Insulin Dependent Diabetes: No Hx Non-Insulin Dependent Diabetes: No Hx Thyroid Disease: No Hx Hypothyroidism: No Hx Hyperthyroidism: No - Hematic Hx Anemia: No Hx Sickle Cell Disease: No - Other Systems Hx Alcohol Use: No Hx Substance Use: No Hx Cancer: No Hx Obesity: Yes
--- NOTE | 2020-11-06 08:32 | Progress Note ---
Labor Epidural - Labor Epidural Start Time: 08:49 Stop Time: 09:02 Performed by:: SOCORRO BRUNER Procedure: Patient is requesting a laboring epidural for laboring pain. Patient IDed, H&P reviewed, all questions and concerns were answered, and consent was signed. Timeout was performed at bedside. Patient in sitting position. Sterile prep and drape was performed. [3] ml of 1% lidocaine skin wheal at L[3]- L [4]. 18- gauge Tuohy epidural needle was advanced to loss of resistance with saline technique. Negative CSF negative blood. Epidural catheter advanced to [12] centimeters. [NEGATIVE] Aspiration [NEGATIVE] test dose. Sterile dressing applied. Patient tolerated procedure.
[2020-11-06] MEDS ORDERED: ePHEDrine SULFATE 50 MG/1 ML INJ IV PRN (09:16)
[2020-11-06] MEDS ORDERED: NALOXONE 2 MG/2 ML INJ IV PRN (09:16)
[2020-11-06] MEDS ORDERED: fentaNYL-BUPIV 2 MCG/ML-0.125% 200 MCG/100 ML BAG EPIDURAL SCH (10:00)
[2020-11-06] MEDS: LACTATED RINGERS 1,000 ML IV SCH ×2 (10:16→20:57)
[2020-11-06] MEDS: valACYclovir 500 MG TAB PO SCH (10:47)
[2020-11-06] MEDS ORDERED: FLU VACC QUAD 2020-2021 (6 months +)/PF 60 0.5 ML SYRINGE IM ONE (12:00)
[2020-11-06] MEDS ORDERED: FAMOTIDINE 20 MG/2 ML INJ IV ONE (12:52)
[2020-11-06] MEDS ORDERED: BICITRA ORAL LIQD 30ML PO ONE (12:52)
[2020-11-06] MEDS ORDERED: METOCLOPRAMIDE 10 MG/2 ML INJ IV ONE (12:52)
--- NOTE | 2020-11-06 12:52 | Event Note ---
Date: 11/06/20 Pt with Category II tracing, now with deep variables to 70s remote from delivery. Proceed with section. Anesthesia and charge nurse aware.
[2020-11-06] MEDS ORDERED: ceFAZolin 1 GM VIAL ONE (12:55)
[2020-11-06] MEDS ORDERED: SODIUM CHLORIDE 0.9% 200 ML ONE (12:56)
[2020-11-06] MEDS ORDERED: ceFAZolin/Water 2 GM/20 ML 2 GM/20 ML SYRINGE IV NR (13:00)
[2020-11-06] MEDS ORDERED: OXYTOCIN DRIP 30 UNITS/500 ML BAG IV SCH ×2 (13:00→16:00)
[2020-11-06] MEDS ORDERED: LACTATED RINGERS 1,000 ML IV SCH (13:00)
--- NOTE | 2020-11-06 13:08 | Anesthesia Day of Surgery ---
Anesthesia Day of Surgery - Day of Surgery Patient Examined: Yes Patient H&P Reviewed: Yes Patient is NPO: Yes Beta Blockers: Yes Cardiac Clearance: No Pulmonary Clearance: No Alfie's Test: N/A
[2020-11-06] MEDS ORDERED: OXYTOCIN 10 UNIT/1 ML INJ ONE (13:45)
[2020-11-06] MEDS ORDERED: ONDANSETRON 4 MG/2 ML INJ ONE (13:45)
[2020-11-06] MEDS ORDERED: KETOROLAC 30 MG/1 ML INJ ONE (13:59)
--- NOTE | 2020-11-06 14:58 | Procedure Note ---
OB Delivery Note - Delivery Date of Delivery: 11/06/20 Surgeon: CIELO ALMANZAR Estimated blood loss: other (900 mL) - Section Preop diagnosis: arrest of dilation, nonreassuring FHR tracing Postop diagnosis: same section procedure: section, primary low transverse Disposition: PACU Complications: none Narrative: Please see operative report - A at 1 minute: 8 at 5 minutes: 9 Gender: Male (1918g (4lb 3.6 oz) @ 1344 pm)
[2020-11-06] MEDS ORDERED: NALOXONE 0.4 MG/1 ML INJ IV PRN ×2 (15:00→15:10)
[2020-11-06] MEDS ORDERED: ONDANSETRON 4 MG/2 ML INJ IV PRN (15:00)
[2020-11-06] MEDS ORDERED: HYDROmorphone 1 MG/1 ML INJ IV PRN (15:00)
--- NOTE | 2020-11-06 15:06 | Operative Report ---
Operative Report Operative Report: Date of procedure: November 06, 2020 Preoperative diagnosis: 1) IUP at 36w1d 2) Nonreassuring status- repet itive deep variables to 70s 3) Arrest of Dilation 4) Preeclampsia with Severe Features 5) IUGR 6) Oligohydramnios 7) Type 1 Diabetes Postoperative diagnosis: Same Procedure: Primary low transverse section Surgeon: Meaghan Frances M.D. Anesthesia: Regional Findings: 1) Viable male , Apgars 8 and 9, weight 1918 g, (4 lb 3.6 oz) in cephalic presentation. Nuchal cord x 1 2) Normal-appearing uterus ovaries and tubes Estimated blood loss: 900 mL IV fluids: 800 mL Urine output: 200 mL, blooy prior to the procedure; clear at the end of the procedure Drains: Oconnell to gravity Specimens: Placenta to pathology Complications:None. Counts correct x 3 Disposition: Stable to PACU Indication for procedure: Pt is a 20 year old at 36w1d who presents for induction of labor seco ndary to preeclampsia with severe features, elevated dopplers, oligohydramnios and IUGR. She progressed to 5-6 cm when the tracing began to have repetitive deep variable decelerations. The decision was made to proceed to section. Operation in detail: After the risks, benefits, alternatives and complications were explained to the patient she gave informed consent for the procedure. She was then taken to the operating room where regional anesthesia was noted to be adequate. She was placed in the dorsal supine position with leftward tilt and prepped and draped in a normal sterile fashion. heart tones were noted prior to incision. A timeout was performed. A Pfannenstiel skin incision was made with the knife and carried down to the layer of the fascia with the Bovie. The fascia was incised in the midline and the fascial incision was extended bilaterally with the Bovie. The fascial incision was then stretched. The rectus muscles were then in the midline and partially transected for adequate visualization. The peritoneum was then entered sharply between two Argelia clamps. The peritoneal incision was extended with good visualization of the bladder. The peritoneal incision was then stretched. An Rylan retractor was placed. The bladder blade was then placed. The vesicouterine peritoneum was grasped with smooth pick ups and incised with Metzenbaum scissors. A bladder flap was then created digitally and the bladder blade was replaced. A transverse incision was made in the lower uterine segment with a knife and extended bilaterally with the bandage scissors. Amniotomy was performed with egress of clear fluid. head delivered with ease, nuchal cord x 1 was reduced, followed by shoulders and body. bulb suctioned at delivery. Cord clamped and cut. handed to NICU staff in attendance. Cord blood was collected. The placenta was then delivered manually. The uterus was then exteriorized and cleared of all clots and debris. The hysterotomy was then reapproximated with 0 Vicryl in a running locked fashion. A second layer of the same suture was used in imbricating fashion. The hysterotomy was inspected and hemostasis was noted. The gutters were irrigated and cleared of all clots and debris. The hysterotomy was again inspected and noted to be hemostatic. Surgicel was placed over the hysterotomy. The Rylan retractor was removed. The uterus was placed back into the peritoneal cavity. The peritoneum was reapproximated with 2-0 Vicryl in a running fashion incorporating the rectus muscles. Surgicel was placed over the rectus muscles. The fascia was reapproximated with 0 Vicryl in a running fashion. The subcutaneous tissue was reapproximated with 3-0 Vicryl in a running fashion. The skin was reapproximated with 4-0 Vicryl in a subcuticular fashion. The incision was then covered with steri strips and a pressure dressing. The procedure was then ended. The patient tolerated the procedure well and was taken to the PACU in stable condition. All instrument, lap, and needle counts were correct 3. The patient received misoprostol 800 mcg per rectum prophylactically.
[2020-11-06] MEDS ORDERED: MORPHINE 4 MG/1 ML INJ IV PRN (15:10)
[2020-11-06] MEDS ORDERED: LANOLIN/ZINC/DIMETHICONE (LANSINOH) 7 GM TP PRN (15:10)
[2020-11-06] MEDS ORDERED: WITCH HAZEL/ GLYCERIN PAD TP PRN (15:10)
[2020-11-06] MEDS ORDERED: SIMETHICONE 80 MG CHEW TAB PO PRN (15:10)
[2020-11-06] MEDS ORDERED: MORPHINE 2 MG/1 ML INJ IV PRN (15:10)
[2020-11-06] MEDS ORDERED: MAGNESIUM HYDROXIDE (MOM) ORAL LIQD UDC PO PRN (15:10)
[2020-11-06] MEDS ORDERED: ceFAZolin/NS 1 GM/50 ML 1 GM/50 ML BAG IV SCH (16:00)
[2020-11-06] MEDS: MAGNESIUM SULFATE 40GM/1000ML 40 GM/1,000 ML BAG IV SCH (16:59)
[2020-11-06] MEDS: KETOROLAC 30 MG/1 ML INJ IV SCH (17:12)
[2020-11-07] MEDS: INSULIN REGULAR, HUMAN 100 UNITS/1 ML SUB-Q SCH ×6 (01:27→21:30)
[2020-11-07] MEDS: ACETAMINOPHEN 325 MG TAB PO PRN (01:28)
[2020-11-07] MEDS: IBUPROFEN 800 MG TAB PO PRN (05:21)
[2020-11-07 06:17] LABS: Hematocrit 38.2 % (30.3-42.9); Hemoglobin 13.1 gm/dl (10.1-14.3)
--- NOTE | 2020-11-07 06:22 | Post Anesthesia Evaluation ---
- Post Anesthesia Evaluation Patient Participated: Yes Airway Patent: Yes Stable Respiratory Function: Yes Nausea/Vomiting: No Temp > 96.8F: Yes Pain Manageable: Yes Adequeate Hydration: Yes Anesthesia Complications: No Block Receding Appropriately: Yes Patient on Ventilator: No
[2020-11-07] MEDS: oxyCODONE /ACETAMINOPHEN 5-325MG TAB PO PRN ×3 (10:45→19:21)
[2020-11-07] MEDS: PRENATAL VIT27-FE FUMARATE-FOLIC ACID VIT TAB PO SCH (10:45)
[2020-11-07] MEDS: valACYclovir 500 MG TAB PO SCH (10:45)
[2020-11-07] MEDS: FERROUS SULFATE 325 MG TAB PO SCH (10:45)
[2020-11-07] MEDS: KETOROLAC 30 MG/1 ML INJ IV SCH ×2 (12:20→16:20)
[2020-11-07] MEDS ORDERED: TETANUS,DIPH,PERTUSS(ACELL) VACCINE 0.5 ML SYRINGE IM ONE (15:11)
[2020-11-07] MEDS ORDERED: MEASLES, MUMPS & RUBELLA 12,500 UNIT/0.5 ML VACCINE SUB-Q ONE (15:11)
[2020-11-08] MEDS: oxyCODONE /ACETAMINOPHEN 5-325MG TAB PO PRN ×3 (00:57→18:35)
[2020-11-08] MEDS: IBUPROFEN 800 MG TAB PO PRN (04:55)
[2020-11-08] MEDS ORDERED: TETANUS,DIPH,PERTUSS(ACELL) VACCINE 0.5 ML SYRINGE IM ONE (06:00)
[2020-11-08] MEDS: INSULIN REGULAR, HUMAN 100 UNITS/1 ML SUB-Q SCH ×4 (09:12→22:20)
[2020-11-08] MEDS: FERROUS SULFATE 325 MG TAB PO SCH (13:03)
[2020-11-08] MEDS: PRENATAL VIT27-FE FUMARATE-FOLIC ACID VIT TAB PO SCH (13:03)
[2020-11-08] MEDS: valACYclovir 500 MG TAB PO SCH (13:03)
--- NOTE | 2020-11-08 22:26 | Progress Note ---
Assessment and Plan POD 2 s/p ltcs. Doing well. Plan for discharge likely on tomorrow. Subjective - Subjective Date of service: 11/08/20 Interval history: Pt is POD 2 s/p ltcs. She is doing well and off magnesium since last evening. Her blood pressure is within it's normal range. Patient reports: appetite normal, voiding normally, pain well controlled, ambulating normally [place]: doing well Objective - Vital Signs Latest vital signs: Vital Signs Temp Pulse Resp BP BP Pulse Ox 11/08/20 16:47 98.1 F 88 18 139/76 95 11/08/20 13:03 97.5 F L 84 18 153/87 95 11/08/20 08:20 98.2 F 76 18 140/84 96 11/08/20 04:55 20 11/08/20 04:48 97.7 F 91 H 18 138/88 138/88 100 11/08/20 02:21 97.9 F 80 18 146/87 98 11/08/20 00:57 20 Intake and Output 11/08/20 11/08/20 11/08/20 06:59 14:59 22:59 Intake Total 480 Output Total 750 Balance -270 Intake: Oral 480 Output: Urine 750 Void 750 Other: Total, Intake Amount 240 Total, Output Amount 250 # Voids Indwelling Catheter 1 Void 1 1 - Exam Breasts: Present: deferred Cardiovascular: Present: Regular rate, Normal S1, Normal S2 Lungs: Present: Clear to auscultation Abdomen: Present: normal appearance, soft, normal bowel sounds Uterus: Present: normal, firm Extremities: Present: normal Incision: Present: normal, dry, intact - Labs Labs: Abnormal lab results 11/07/20 11/08/20 11/08/20 Range/Units 21:10 08:22 13:00 POC Glucose 176 H 119 H 129 H (70-105) mg/dL 11/08/20 11/08/20 Range/Units 16:49 21:51 POC Glucose 162 H 121 H (70-105) mg/dL
[2020-11-09] MEDS: oxyCODONE /ACETAMINOPHEN 5-325MG TAB PO PRN ×2 (01:21→08:18)
[2020-11-09] MEDS: INSULIN REGULAR, HUMAN 100 UNITS/1 ML SUB-Q SCH ×3 (01:30→10:09)
[2020-11-09 07:47] VITALS: BP 154/89
--- NOTE | 2020-11-09 08:31 | Discharge Summary ---
Providers - Providers Date of Admission: 11/05/20 17:30 Date of discharge: 11/09/20 Attending physician: CIELO ALMANZAR 11/06/20 15:10 Consult to Obstetrician/Gynecologist [CONS] Routine Reason For Exam: Primary care physician: CIELO ALMANZAR Hospitalization Reason for admission: induction of labor Delivery: Procedure: section, primary low transverse Discharge diagnosis: IUP at term delivered Hospital course: patient admitted for IOL complicated by NRFHT. Patient underwent primary . Received magnesium postop Condition at discharge: Good Disposition: DC-01 TO HOME OR SELFCARE - Discharge Diagnoses (1) delivery delivered Status: Acute Plan - Discharge Medications Prescriptions: Ibuprofen [Motrin] 800 mg PO Q8HR PRN #60 tablet PRN Reason: Pain , Severe (7-10) oxyCODONE /ACETAMINOPHEN [Percocet 5/325] 1 tab PO Q6HR PRN #30 tablet PRN Reason: Pain - Provider Discharge Summary Activity: no sex for 6 weeks, no heavy lifting 4 weeks, no strenuous exercise Diet: routine Instructions: routine Additional instructions: [] Smoking cessation referral if applicable(refer to patient education folder for contact #) [] Refer to [facility] Booklet Call your doctor immediately for: * Fever > 100.5 * Heavy vaginal bleeding ( >1 pad per hour) * Severe persistent headache * Shortness of breath * Reddened, hot, painful area to leg or breast * Drainage or odor from incision. * Keep incision clean and dry at all times and follow doctor's instructions regarding bathing/showering scheduled followup in 2 weeks - Follow up plan
--- NOTE | 2020-11-09 08:31 | Progress Note ---
Assessment and Plan - Patient Problems (1) delivery delivered Current Visit: Yes Status: Acute Plan to address problem: patient doing well dichar[place] home Subjective - Subjective Date of service: 11/09/20 Interval history: patient reports problem with . Infant in NICU. Tolerating regular diet Patient reports: appetite normal, voiding normally, pain well controlled [place]: in NICU Objective - Vital Signs Latest vital signs: Vital Signs Temp Pulse Resp BP BP Pulse Ox 11/09/20 07:46 97.8 F 84 18 154/89 92 11/09/20 06:18 98.4 F 84 16 140/89 98 11/09/20 04:35 98.1 F 88 16 128/78 98 11/09/20 01:21 14 11/08/20 21:15 94 H 147/91 99 11/08/20 20:17 85 18 142/87 98 11/08/20 16:47 98.1 F 88 18 139/76 95 11/08/20 13:03 97.5 F L 84 18 153/87 95 Intake and Output 11/08/20 11/09/20 11/09/20 22:59 06:59 14:59 Intake Total 200 Balance 200 Intake: Oral 200 Other: Total, Intake Amount 200 # Voids Indwelling Catheter 1 Void 1 - Exam Incision: Present: normal, dry, intact - Labs Labs: Abnormal lab results 11/08/20 11/08/20 11/08/20 Range/Units 08:22 13:00 16:49 POC Glucose 119 H 129 H 162 H (70-105) mg/dL 11/08/20 11/09/20 11/09/20 Range/Units 21:51 01:29 05:38 POC Glucose 121 H 106 H 148 H (70-105) mg/dL
[2020-11-09] MEDS: valACYclovir 500 MG TAB PO SCH (10:18)
[2020-11-09] MEDS: PRENATAL VIT27-FE FUMARATE-FOLIC ACID VIT TAB PO SCH (10:18)
[2020-11-09] MEDS: FERROUS SULFATE 325 MG TAB PO SCH (10:18)
== END 2020-11-09 11:30 | disposition home or self-care (01) | DRG 765 ==
LOC: LD 17:30 → OB 11-07 20:17
PROVIDERS: ADMIT Obstetrics & Gynecology; ATTEND Obstetrics & Gynecology
PROC: 10D00Z1 Extraction of Products of Conception, Low, Open Approach (ICD-10-PCS; principal; 2020-11-06)
PROC: 3E0234Z Introduction of Serum, Toxoid and Vaccine into Muscle, Percutaneous Approach (ICD-10-PCS; 2020-11-07)
PROC: 3E0134Z Introduction of Serum, Toxoid and Vaccine into Subcutaneous Tissue, Percutaneous Approach (ICD-10-PCS; 2020-11-07)
DX: O14.14 Severe pre-eclampsia complicating childbirth (principal); O98.32 Other infections with a predominantly sexual mode of transmission complicating childbirth; O41.03X0 Oligohydramnios, third trimester, not applicable or unspecified; Z20.822 Contact with and (suspected) exposure to COVID-19; O75.0 Maternal distress during labor and delivery; O36.5930 Maternal care for other known or suspected poor fetal growth, third trimester, not applicable or unspecified; E10.9 Type 1 diabetes mellitus without complications; O99.214 Obesity complicating childbirth; O24.02 Pre-existing type 1 diabetes mellitus, in childbirth; A60.09 Herpesviral infection of other urogenital tract; Z3A.36 36 weeks gestation of pregnancy; Z37.0 Single live birth; Z83.3 Family history of diabetes mellitus; Z23 Encounter for immunization
CPT/HCPCS: 36415; 81001; 82565; 82962; 83735; 84450; 84460; 84550; 85014; 85018; 85027; 86592; 86850; 86900; 86901; 88307; G0378; J0290; J0360; J0595; J0702; J1815; J1885; J2405; J2590; J2765; J3475; J7120; U0003

== ENCOUNTER 2021-07-10 14:21 | Emergency (ER) | payer MEDICAID ==
[2021-07-10 14:43] VITALS: BP 114/75
--- NOTE | 2021-07-10 15:24 | Emergency Department Report ---
Minor Respiratory - HPI Chief Complaint: Dyspnea/Respdistress Stated Complaint: SEVERE COUGH, CHEST PAIN Time Seen by Provider: 07/10/21 14:58 Duration: 1 week Minor Respiratory: Yes Sore Throat, Yes Cough, No Rhinorrhea, No Able to Tolerate Fluids, No Ear Pain, No Sick Contacts, No Hemoptysis, No Chest Pain, No Shortness of Breath, No Fever Other History: 21-year-old -[place]i female presents to the emergency room complaining of cough with chest pain and chest tightness for the last week. Patient reports she is not vaccinated for Covid. She states she has not had a Covid test since March when she was diagnosed with Covid. She denies any fever chills no nausea no vomiting. She states her last menstrual period was 06/10/2021. States has been taken [id number] Robitussin. Has no past medical history currently takes no meds on a daily basis and has no known drug allergies. ED Review of Systems ROS: Stated complaint: SEVERE COUGH, CHEST PAIN Other details as noted in HPI Comment: All other systems reviewed and negative ED Past Medical Hx - Past Medical History Hx Hypertension: No Hx Heart Attack/AMI: No Hx Diabetes: Yes (IDDM) Hx Deep Vein Thrombosis: No Hx Liver Disease: No Hx Renal Disease: No Hx Sickle Cell Disease: No Hx Seizures: No Hx Asthma: No Hx COPD: No Hx HIV: No - Surgical History Hx Pacemaker: No Hx Internal Defibrillator: No - Social History Smoking Status: Former Smoker - Medications Home Medications: Home Medications Medication Instructions Recorded Confirmed Last Taken Type No Known Home Medications [No 07/10/21 07/10/21 Unknown History Reported Home Medications] Minor Respiratory Exam - Exam General: Vital signs noted. No distress. Alert and acting appropriately. HEENT: Yes Moist Mucous Membranes, No Pharyngeal Erythema, No Pharyngeal Exudates, No Rhinorrhea, No Conjuctival Injection, No Frontal Tenderness, No Maxillary Tenderness Neck: Yes Supple, No Adenopathy Lungs: Yes Good Air Exchange, Yes Cough, No Wheezes, No Ronchi, No Stridor, No Labored Respirations, No Retractions, No Use of Accessory Muscles, No Other Abnormal Lung Sounds Heart: Yes Regular, No Murmur Abdomen: Yes Normal Bowel Sounds, No Tenderness, No Peritoneal Signs Neurologic: Alert and oriented, no deficits. Musculoskeletal: Unremarkable. ED Course Vital Signs 07/10/21 07/10/21 14:22 14:40 Temperature 98.0 F 98.0 F Pulse Rate 111 H Respiratory 16 Rate Blood Pressure 114/75 [Right] O2 Sat by Pulse 98 Oximetry ED Medical Decision Making - Radiology Data Radiology results: report reviewed [facility] [address] [place] [address] XRay Report Signed Patient: ALIA ADAMES MR#: [id number] : 2000 Acct:[id number] Age/Sex: 21 / F ADM Date: 07/10/21 Loc: ED Attending Dr: Ordering Physician: NORA SHARP Date of Service: 07/10/21 Procedure(s): XR chest routine 2V Accession Number(s): [id number] cc: NORA SHARP Fluoro Time In Minutes: CHEST 2 VIEWS INDICATION / CLINICAL INFORMATION: sob,cough and rales. COMPARISON: None available. FINDINGS: SUPPORT DEVICES: None. HEART / MEDIASTINUM: No significant abnormality. LUNGS / PLEURA: No significant pulmonary or pleural abnormality. No pneumothorax. ADDITIONAL FINDINGS: No significant additional findings. IMPRESSION: 1. No acute findings. Signer Name: Sebastien Rubio MD Signed: 07/10/2021 5:11 PM Workstation Name: [id number] Transcribed By: SB Dictated By: SEBASTIEN RUBIO MD Electronically Authenticated By: SEBASTIEN RUBIO MD Signed Date/Time: 07/10/211710 DD/ 10 TD/TT: - Medical Decision Making 21-year-old -Israeli female presents to the emergency room complaining of cough with chest pain and chest tightness for the last week. Patient reports she is not vaccinated for Covid. She states she has not had a Covid test since March when she was diagnosed with Covid. She denies any fever chills no nausea no vomiting. She states her last menstrual period was 06/10/2021. States has been taken [id number] Robitussin. Has no past medical history currently takes no meds on a daily basis and has no known drug allergies. Chest x-ray has been ordered. Critical care attestation.: If time is entered above; I have spent that time in minutes in the direct care of this critically ill patient, excluding procedure time. ED Disposition Clinical Impression: Viral syndrome Disposition: 01 HOME / SELF CARE / HOMELESS Is pt being admited?: No Does the pt Need Aspirin: No Condition: Stable Instructions: Viral Respiratory Infection, [id number] Additional Instructions: Your symptoms appear most consistent with a nonspecific viral syndrome. However, given this current pandemic, COVID-19 is in the differential of possibilities. Despite your previous negative COVID-19 test, I do recommend repeat outpatient Covid 19 testing. In the meantime, isolate/quarantine yourself and stay away from anyone who is elderly, immunocompromised or chronically ill. You can use ibuprofen every 6-8 hours and Tylenol every 4-8 hours, using the dosing on the back of the bottle, as needed for any fever or body aches. Return to the emergency department with any worsening of your symptoms, development of chest pain or shortness of breath, or with any acute distress. Referrals: [facility] [Provider Group] - 3-5 Days Forms: Work/School Release Form(ED) Time of Disposition: 17:50
[2021-07-10 16:32] LABS: HCG Qualitative,Urine Negative (Negative)
--- NOTE | 2021-07-10 17:15 | XRay Report ---
CHEST 2 VIEWS INDICATION / CLINICAL INFORMATION: sob,cough and rales. COMPARISON: None available. FINDINGS: SUPPORT DEVICES: None. HEART / MEDIASTINUM: No significant abnormality. LUNGS / PLEURA: No significant pulmonary or pleural abnormality. No pneumothorax. ADDITIONAL FINDINGS: No significant additional findings. IMPRESSION: 1. No acute findings. Signer Name: Sebastien Velez MD Signed: 07/10/2021 5:11 PM Workstation Name: [id number]
== END 2021-07-10 18:06 | disposition home or self-care (01) ==
LOC: ED 14:21
DX: B34.9 Viral infection, unspecified (principal); E11.8 Type 2 diabetes mellitus with unspecified complications; Z87.891 Personal history of nicotine dependence
CPT/HCPCS: 71046; 81025; 99283